=== PATIENT | female | born 1965 | race Caucasian/White ===

== ENCOUNTER 2023-04-13 07:58 | Outpatient (OUT) | payer BC, SELFPAY ==
--- NOTE | 2023-04-13 08:07 | MM_ITS ---
Patient Name: ILENE HUTCHISON MR#: [id number] : 1965 Exam Date: 04/13/2023 Ordering Doctor: DR ARMANDO WATERS M.D. RADIOLOGY REPORT PROCEDURE: MM TOMOSYNTHESIS SCREENING BI COMPARISON: MAMMO LT DX, 12/30/2011. MAMMO CLARA DX, 12/22/2011. MAMMO CLARA SCREEN, 12/19/2010. INDICATIONS: Screening Calculator Name NCI Breast Cancer Risk Assessment Tool 5 Year Breast Cancer Risk 0.90% Lifetime Breast Cancer Risk 5.90% Personal Breast Cancer No Personal Ovarian Cancer No Treatments None Family Cancers None LOCATION: [facility] BREAST COMPOSITION: Almost entirely fatty. FINDINGS: DIAGNOSTIC CATEGORY 2--BENIGN FINDING: RIGHT BREAST: No significant suspicious finding. Scattered benign-appearing calcifications are present. LEFT BREAST: No significant suspicious finding. Scattered benign-appearing calcifications are present. RECOMMENDATIONS: ROUTINE MAMMOGRAM AND CLINICAL EVALUATION IN 12 MONTHS. PLEASE NOTE: A NORMAL MAMMOGRAM DOES NOT EXCLUDE THE POSSIBILITY OF BREAST CANCER. A CLINICALLY SUSPICIOUS PALPABLE LUMP SHOULD BE BIOPSIED. Dictated by: Alec Patrick M.D. on 04/15/2023 at 15:31 Approved by: Alec Patrick M.D. on 04/15/2023 at 15:35
== END 2023-04-13 07:59 | disposition home or self-care (01) ==
LOC: MAMMO 07:58
PROVIDERS: PCP Internal Medicine; Visit Provider Internal Medicine
DX: Z12.31 Encounter for screening mammogram for malignant neoplasm of breast (principal)
CPT/HCPCS: 77063; 77067

== ENCOUNTER 2023-06-17 13:45 | Outpatient (OUT) | payer BC, SELFPAY ==
--- OUTSIDE RECORDS SUMMARY | 2023-06-17 13:53 | XMS_ITS | CCD ---
Author Organization [facility] Care Team Providers Care College Tutor Name Role Phone ASAD, DR LARKIN Admitting Unavailable ASAD, DR LARKIN Attending Unavailable WILLOW [place]OVE, DR HUDSON Primary Care Unavailable WEST, DR PIERRE Malcolm Consulting Unavailable ASAD, DR LARKIN Consulting Unavailable Ruben Llanes Attending Unavailable Ruben Llanes Admitting Unavailable Provider, None Primary Care Unavailable Myra Borges Unavailable Unallocated, [place] Provider Primary Care Provider ROMARIO COELHO Attending Unavailable ROMARIO COELHO Attending Unavailable HAILE MEDINA Attending Unavailable HAILE MEDINA Referring Unavailable HAILE MEDINA Attending Unavailable HAILE MEDINA Referring Unavailable Romario Coelho MD Primary Care Provider BRANDO MEDLEY Attending Unavailable ROMARIO COELHO Referring Unavailable ROMARIO COELHO Primary Care Unavailable Allergies Allergy Classification Reported Allergen(s) Allergy Type Date of Onset Reaction(s) Facility Contrast Media (1 source) Contrast media Substance Allergy [address] [facility] Repository Opioid Agonists (1 source) Codeine Drug Allergy [address] [facility] Repository (7 sources) Codeine; Translations: [codeine] Drug Allergy [address] [facility] Repository (8 sources) Contrast media; Translations: [Red Dye] Propensity to adverse reactions to food (disorder) [address] [facility] Repository (1 source) Codeine Drug Allergy stomach upset [facility] Other Medications Current Medications Medication Drug Class(es) Dates Sig (Normalized) Sig (Original) 8 hr acetaminophen 650 mg extended release oral tablet (4 sources) take 1 tablet by mouth every eight hours as needed for pain acetaminophen (Tylenol 8 Hour) 650 MG ER tablet Take 650 mg by mouth every 8 (eight) hours if needed for mild pain. Do not crush, chew, or split. 0 Active aspirin 325 mg oral tablet (2 sources) Platelet Aggregation Inhibitor, Nonsteroidal Anti-inflammatory Drug take 1 tablet by mouth in the morning aspirin 325 MG tablet Take 325 mg by mouth in the morning. 0 Active Calcium (1 source) Phosphate Binder, Calcium Calcium Active methylPREDNISolone 4 mg oral tablet (2 sources) Corticosteroid Start: methylPREDNISolone 4 MG as directed Orally for daily dose take half with breakfast, half with dinner for 6 days Nov, Active methylPREDNISolo ne Not-Taking Multivitamin preparation (1 source) Multivitamin Act estephania sod sulf-pot chloride-mag sulf 1.479-0.188- 0.225 gram tablet (1 source) Start: 05-26-2023 sod sulf-pot chloride-mag sulf 1.479-0.188- 0.225 gram tablet Indications: Encounter for screening colonoscopy Please see instructional sheet given by physicians office. 24 tablet 0 05/26/2023 Active vitamin B12 (1 source) Vitamin B12 Vitamin B 12 Act estephania Vitamin E (1 source) Vitamin E Active Completed/Discontinued Medications Medication Drug Class(es) Dates Sig (Normalized) Sig (Original) amoxicillin 875 mg oral tablet (1 source) Penicillin-class Antibacterial Start: 11-27-2017 take 1 tablet by mouth every twelve hours Amoxicillin 875 MG 1 tablet Orally every 12 hrs for 7 days Nov, Not-Taking azithromycin 250 mg oral tablet (1 source) Macrolide Antimicrobial Start: 11-24-2014 Zithromax Z-Geoff 250 MG 2 tablets on the first day, then 1 tablet daily for 4 days Orally Once a day for 5 day(s) Nov, Not-Taking cyclobenzaprine hydrochloride 10 mg oral tablet (1 source) Muscle Relaxant End: 05-26-2023 take 1 tablet by mouth three times daily as needed for muscle spasms cyclobenzaprine (FLEXERIL) 10 mg tablet Take 10 mg by mouth 3 (three) times a day as needed for muscle spasms. Has not started taking at this time. 0 05/26/2023 Discontinued (Therapy completed) levoFLOXacin (1 source) Quinolone Antimicrobial levoFLOXacin Not-Taking lidocaine hydrochloride 20 mg/ml mucous membrane topical solution (1 source) Antiarrhythmic, Amide Local Anesthetic Start: 11-27-2017 take 10 mL by mouth every three hours Lidocaine Viscous 2 % 10 ml swish in mouth, gargle, and spit. DO NOT swallow every 3 hrs for 2 days Nov, Not-Taking naproxen 500 mg oral tablet (1 source) Nonsteroidal Anti-inflammatory Drug End: 05-26-2023 take 1 tablet by mouth twice daily at mealtime naproxen (NAPROSYN) 500 mg tablet Take 500 mg by mouth 2 (two) times a day with meals. Has not started taking at this time. 0 05/26/2023 Discontinued (Therapy completed) predniSONE 10 mg oral tablet (1 source) Start: 11-24-2014 take 1 tablet by mouth every twelve hours predniSONE 10 mg 1 tablet with food or milk Orally Twice a day for 5 day(s) Nov, Not-Taking Problems Problem Classification Problem Date Documented Da te Episodic/Chronic Acute bronchitis (1 source) Acute bronchitis; Translations: [Acute bronchitis, unspecified] Episodic Disorders of lipid metabolism (2 sources) Mixed hyperlipidemia; Translations: [Mixed hyperlipidemia] 04-06-2023 Chronic E Codes: Struck by; against (1 source) Other cause of strike by thrown, projected or falling object, initial encounter; Translations: [OTH CAUSE STRIK THRWN/FALL OBJ INIT] Onset: 08-06-2020 Episodic Nonspecific chest pain (7 sources) Chest discomfort; Translations: [Other chest pain] Onset: 03-26-2023 03-26-2023 Episodic Other circulatory disease (7 sources) Elevated blood-pressure reading without diagnosis of hypertension; Translations: [Elevated blood-pressure reading, without diagnosis of hypertension] Onset: 03-26-2023 03-26-2023 Episodic Other injuries and conditions due to external causes (3 sources) Unspecified injury of right foot, initial encounter; Translations: [UNSPECIFIED INJURY RT FOOT INITIAL] Onset: 08-02-2020 Episodic Other nervous system disorders (4 sources) Difficulty walking; Translations: [Difficulty in walking, not elsewhere classified] Onset: 03-24-2023 03-24-2023 Chronic Other screening for suspected conditions (not mental disorders or infectious disease) (8 sources) Patient encounter status; Translations: [Encounter for other screening for malignant neoplasm of breast] Onset: 04-06-2023 04-06-2023 Episodic Other upper respiratory infections (1 source) Acute sinusitis, unspecified Episodic Residual codes; unclassified (1 source) Family history of cancer of colon; Translations: [Family history of malignant neoplasm of digestive organs] 05-26-2023 Episodic Residual codes; unclassified (1 source) Family history of malignant neoplasm of digestive organs; Translations: [Family history of malignant neoplasm of digestive organs] Onset: 05-26-2023 Episodic Screening and history of mental health and substance abuse codes (5 sources) Tobacco smoking behavior - finding; Translations: [Personal history of nicotine dependence] Onset: 03-26-2023 03-26-2023 Episodic Substance-related disorders (1 source) Nicotine dependence, cigarettes, uncomplicated; Translations: [NICOTINE DEPEND CIGARETTES UNCOMP] Onset: 08-06-2020 Chronic Superficial injury; contusion (1 source) Contusion of right foot, initial encounter; Translations: [CONTUSION RIGHT FOOT INITIAL ENC] Onset: 08-06-2020 Episodic Unclassified (1 source) Colon Cancer Screening Onset: 05-26-2023 Viral infection (1 source) Other viral agents as the cause of diseases classified elsewhere Episodic Results Test Name Value Interpretation Reference Range Facil ity Coding Summaryon 11-04-2022 Coding Summary HTMLBase 64 EuhruimgEIz7pGv+PGhlY WQ+PU0VTJJfA28gzTIblG 1aC9PIZNvAByxcPZEUGLl UDbKxnuDjMU2gjPSiZZQe IC8+OK3fLLCjOudhvYLra 5L5yIL5X04kvl6oZJhprN A7PRXvSmAgeelur8rfjZq 6IDcuNmluOyBt DFHrgY22FTA6iC10Ml01q CYoxUPuv7jirXp1SqLyUJ HaCGJ1tVwcJBcxg4LhKVR eS47pzRWsx1J1 PJRyuZqooPWyXqDksMC1v Y8iWRfskqird1ojrpllRn d1ee81gYIyd0F5aQQ6B6X suiF6OFFsrRCx QmkwzSJMaP1vkrlnn4zcx nvwXgBuYFVuWRf7TGc0BI JjzNsiTeVtTC14WYB8QHU pqcNqL6LmPMZu gRhiVnY4o2G4Xp3ST6TGT xjbF0SABTFJILinnBA+PC 24jt86I9FfElraJxw8HYX hFPW5sCV9sB1s UDYdMPsiy9O0vVJ6U6Xun zDgqb9wi8lmKJNyLJtmU3 7reTAis7X8QBPftLH2KCE iqLrkPpQfiO08 Oyc+HWHudWxbc6XdQolma 0gib7zepAq4CxctVZYlyn YsiUojKXC5f8TeAq9cFCT jlVB6vHS0hH3b VgVkBuI4XXfmJ413ThTdg ASnQzwyI22uH0KfiHJ+PH KmWzk8MOQkuSrgEV1rJ2A hZGRpbmctbGVm qSxiUE9vMXAmgdlzQRQet H3jFMOrQ8v8EsOrImD9TH jrA0HqXTUlbcqrGp46uS5 gGxDqBkT3FXhw B1ShlvE7FFRreRNcNHlvM BY8F07pw5Z3RFIqLSKwFA J0dAM0tW6izZqebgbbuWZ mdDsgdmVydGlj MZcgPEwuF378KYLknZbzK kNvZGluZyBEYXRlOiAgMD kvMTIvMjAyMzwvdGQ+PHR oMQT0lFtbIMVq xNRtLAauZj1qiRlzrUwrK W6xVIQspezyHKSexM4jDY IueZMkaPbwYE5yRKKqdnw dh618SqBkBBL3 YINxfTEvR9UyaW5lFsHlM VNcEWGbB9EldXMiYUgjD9 45BAmsFpX6OQJoxmPdZ6V sLWFsaWduOiB0 a0A9Pl9Zo9OjxazxK3Hic XNsXcDdEcjrLKp4X2SqJp wvdHI+OY89QUAaJL65ESy 3GQM9eCbhFVak BDPgC8EuqJ1fGhHnFRFqQ GRkOyc+PHRhYmxlIHdpZH RoPScxMDAlJyBzdHlsZT0 hOx0mNJQvEPOg tBsjfIIeRcWkp1nbFICkI ZljGG1ilYreX3PstQZ5ZE Pru5u8Qx80R02tW8FnhFG +TGMsyYS7vZC8 nN9pEfFwAjO0VJrkG705S dPfxOZrZptwk8xxm1ngxN n0NzH2YVEvefHirNgdTEO 6f2WsBc24E17q IHdpZHRoPSIxNSUiIHZhb Lczem2skT2oXe9+PGNvbC X7xHV2lG4fTeMjFbC7UVm gY275PmGnnGJx Ltlsj1kyx3tigFy7CvDeE MSqanVytJmmMOG9z4LdPd 98K3ZqtRctg6DrDwh3oq7 6yDWtz8L7vRB7 W5NsBXIhjldlhAFnmZvmO E0lWBDpexazSXEjkS3wHH IgZ6j8CvFhHwO9BXgzR3P ubaP4VCByiMWu FMYejNPXmY3ghaloy5qhb xhdEaMoPAShGEx8MGq2UR AzkDkwOwJkPZF7PjD4DXW 1kQFguR9ucFrw kdretC9sSms+BCF1vCHvp HHLEV3kEewbhVU+PHRkIH Z1mCmeDNptSDVsjC8qNNR kO7r3ByCvPhW9 WOegY8SahbM5QQKvgKGwG EIggEAPxI6aebgat6elzq slKhAiJOPmSEl2QUx9GPY saWduOiBsZWZ0 RkC7CFX2wLPthS3nfGjwk aptqH6fDaj+QmlydGggRG X6RXe6C4PsYri1IUPvzCy oVY5psDHhKDsi Ui8dhMlyiZclYI9xWKSbn bhnn819MyQbp3wzZCTkeR EaMKvwKNF8N20jz4S3JTM lVZUbENR1jNF2 zE2lcIkemecnrYQfhLzyi fQhcKpcZSnpPNtuS078BT FtqBplQeVoCAp7A2KlYrf 8FZGpmGfjBP5l pUCjTDxxFq6uaFwmtCbrV T9xFKBrnhesa074PkXot3 izJLYwoHJqEPwzHZY9A00 ku0E7VRDeLJAh OUF9qNU2fT0fxDlivenor GVmdDsgdmVydGljYWwtYW kkR568NTOfnCbtGsQlnQu 0F8CoFzf6EPWx iUtmUC0tsEKnPHjkMa0nj UtetSaoTW7mGBLcmqdjx6 79IvTik3zwCBLhqRDmHAb bTRD9S62mr2P1 SAOfNLKdXCB3vSW4cX0mc GlnbjogbGVmdDsgdmVydG inCRoeAVlmQ647IACanJf nPlBhdGllbnQg PRmaOMm8U5AbGluhbIS+P W59GDOqLX69vWGsxMTzm0 oswOt5XuCkPTNmRUX8dXq kPHfoe8ZzYHWj T90jvXEgz6M6IGErvCvmf QGqRwQiuZZ5qU7hNTbjye amv9guyxtqSgfzs4sxmn1 6bO17A14cHYhu ZHRoPSIzMCUiIHZhbGlnb l1iqI4oHg9+GVXvjTJ8vX M7kK4kHLPwTvP2OMscA87 9InRvcCIvPjxj g1jyh4gftMq3CfO7IZPlm fUmbJioWYP5b7HcCj34O0 9sIHdpZHRoPSIyMCUiIHZ ucTuzjk3icP4m Ii8+GDXvgLG3sGL4mZ2mE kUgKcG1OCpkO759DjRzvU TtAnriG13sB0BkwQY+PHR oCrc5UPVndJop FE6kaCNeCKnqAz4vPEL3Z gWwFmFiHPmqN7SaGKKphf effcopqHV0KYWlEVSsmW1 0Go5wwAgaMZLq wODOyD4vrtrla2tpwjpzN cQiAAUvCGf3ICs2CSInjI lrJsSgCKN5QuK0KKL1qQD vaJ1waCsddgac yF8hJ3BjTEMekaxjOr91x U8yYfYcStG4JFhcOhp+Q1 VFVkFTLCBKQUNRVUVMSU5 GCFN1W6ZtBns3 TDCabUqxID9ptJYdKFloR p7aaNbnbUkyIR8kSUAfbb vzVVHpdS8tTDPspABrmQf oFY7vYJRqacqj x568VsGsURG2XUPovVOzK 0WhjO5qGvCjPUNqOFZyD7 IejRXkOQomB083NDmiJdT 5MRZqyjNbI0Aw DSSfiSfeGkY8l7G3Yj9sV o2cWh0tKWV9VP38FF61zH Vfj4K0qWJ0J9TuVUNpgbw zpnmayUW5XVXz GDUeqE75vTZvOCjbJa7ui 5J0p328DCTwNGMdvA77Eo 5qgQuuEFOecRREcD7fzzh wo5cpuuwuDpOq XBGuZHs9CCm0VERnhGojB zMxHSX7AgX9OCE5vAJfeR 1nbBskmkhblZ2hUsq+NTU nJHGkrpK9B2Oi Moi1FDQneJstUP0wsNXtQ TygOr1zkTyikRrzTJ4bQT OuhkmvIUBvyS5yKKRkdPP qbFojTE8sHYDc oyhuw418LvMeXDN4AXMgj KFmI8BwtR0zAuCjUUKjML XoD3FsaGViTUkgN152WIg eOkD8DIHiciVj U3AnFSGfmJssSnO7u1V1Y d8FAJ6KSQI6S4SdOuc8JH EsyHitVC4utEUxKKovFl1 nuQzxaGlpSN1e QPQlmmncGNQtuE4vLSYjf MBduUayQT9jMSYfftwod2 30QsYhTSN5JUObfTQtD4H kaH9aSbZqMFAc DHZgT9EaxHGaVOymI686O VrrEgS7XANtetEmU5CkJG GozSjlBvJ5y4U0Rf6LyWN eC9UfS8h3M4Ru PjwvdHI+SW46CRYmAE28x ZFjsXPyv6dmxRm4LuDyFD CpKJF8kOgdQJrkl7NgQRZ zG59esDXnu8D8 WCRpdGafsKRzRbNynTC9s U6qKAplalono4wyjjhcFf fds1uxyh55qT91R38fZQw pZHRoPSIzMCUi TFLbjXhjlg5imW2iWe9+P GGbiIU8hPK3uE2kXgKvKd N2CKthM961RcYioJVdHop nf1sle3aheLe9 EfUuTWOpzyVlhOwvZCM5k 8DbYe38M47tCNctIDBeVW UaOGWeUMIpkRmtfw7clR3 wIi8+TH9gp0tf gq83tT67xPE+QJWwTEB8a MiuINboGLKbqR9wJOtbVm T3HJIcOpKodL52kLAlXUm yCr5bzQvuuFct WY1nZGPprhljx828SrEmm 6daGFNpfHAxXQrrQPY8P1 3ew4C4HCWaPDPdOXC5hGI 3zN3voVvwnjot bGVmdDsgdmVydGljYWwtY RbnY029DOWymQlxVzFuoR CiL0tskxLLMQ8tQgencKP +JDPbCMX5aMqt WZzkGYDmfE3aQOOtJ6v6J zLqZdB5WKlhV2YnsiP9EG WapYUcHGGviXHQjZ2odfk wc4zjgcucScEp FTUmVAs3MZd8YWTmcBjqW hPbJMF1VzB8HNV8kBAgzQ 5ilVyvceawlD1pEgh+Rkl OOjwvdGQ+PHRk FPU3hFgqBAooZTYrkU1kW MOkY3i5AsIpSbT3YFhcE9 AcpmM9TGSpuJIfCNQwnZK BfQ6vghgwj8yq lkirDyHxHWKzIRh4UHc5Z TAplJmpSxAuDNM6CfG2EL M5rHRopN4bbMziobvpmA6 wOyc+TVJOOjwv dGQ+XHAiVKH0kRjtDAneF SRdbB1jUYNjK6b6BvVfIx I4VYmoU1AivdL1BJFtoEL yHMWozRJAvD3f bxxtq7loshicZhLwOLOeA Yi6KUf7MJMggXhbXgXeME H0XaI8DGK7cDGjuZ6faTe sxamcbU4fTfs+ OGY0ADE5CI25MO02W1LtP jwvdGFibGU+PHRhYmxlIH dpZHRoPScxMDAlJyBzdHl sTQ3iIq7vZDDh LWN (more content not included)... Normal [facility] ED Clinical Summaryon [address] [facility] - Emergency Department [address] [place] [id number] ED Clinical Summary PERSON INFORMATION Name: CATRACHITA HUTCHISON Age: 57 Years Sex: FEMALE : 1965 MRN: Acct#: Visit Reason: Buttock Injury; Fall; Ankle injury - Minor; FALL-LFT ANKLE/RT BUTTOCKS PAIN Arrival: 10/24/2022 11:00:52 Discharge: 10/24/2022 13:34:00 LOS: 000 02:34 Check In: 10/24/2022 11:00:52 Checkout:10/24/2022 13:34:00 Address: [address] [place] [address] [address] [facility] [address] PCP: Provider, Unlisted PROVIDER INFORMATION Provider Role Assigned Unassigned Ruben Llanes MD ED Provider 10/24/2022 11:15:02 Joan Terry RN ED Nurse 10/24/2022 11:17:05 VITALS INFORMATION Vital Sign Triage Latest Temperature Tympanic 36.6 DegC 36.6 DegC Temperature Temporal Artery Pulse Rate O2 Sat 100 % 100 % Respiratory Rate 18 br/min 18 br/min Blood Pressure /81 mmHg /81 mmHg MEDICAL INFORMATION Medications Given: Medication Dose Route acetaminophen-hydroco done (acetaminophen-hydroc odone 325 mg-5 mg oral tablet) 1 tab(s) PO Allergy Information: Red Dye; codeine PHYSICIAN DOCUMENTATION Patient: CATRACHITA HUTCHISON Age: 57 years Sex: FEMALE : 1965 Associated Diagnoses: Moderate left ankle sprain; Fall on same level from slipping, tripping or stumbling; Contusion, buttock; Closed nondisplaced fracture of fifth metatarsal bone Author: Ruben Llanes MD Basic Information Time seen: Date & time 10/24/2022 11:20:00. History source: Patient. Arrival mode: Private vehicle, walking. History of Present Illness The patient presents following fall. The onset was just prior to arrival. The occurrence was single episode. The fall was described as tripped, fell from ground level. The location where the incident occurred was at home. The character of symptoms is pain and swelling. The exacerbating factor is movement. The relieving factor is immobilization. 57-year-old female presented to ER for evaluation of injury as result of a fall. Patient stated that injury occurred just about half an hour prior to arrival. Stated that she was at home, walking outside, tripped over and fell. Reported having her left foot and ankle gave out, and had an inversion injury. Fell also onto her right gluteal region, lower sacral region. Reported having pain both area. Reported have significant swelling to the left foot and ankle region. Reported pain with weightbearing. Pain with movement. Also pain at the right gluteal area. No other treatment prior to arrival. She reported that she has a previous left ankle problem when she was in grade school. Had some sort of ligament or sprain and reported that she had some persistent problems to that area since childhood. Review of Systems Constitutional symptoms: Negative except as documented in HPI. Skin symptoms: Negative except as documented in HPI. Musculoskeletal symptoms: Muscle pain, Joint pain. Neurologic symptoms: Negative except as documented in HPI. Health Status Allergies: Allergic Reactions (Selected) Moderate Codeine- Abdominal pain. Red Dye- No reactions were documented.. Past Medical/ Family/ Social History Medical history: No active or resolved past medical history items have been selected or recorded., Reviewed as documented in chart. Surgical history: No active procedure history items have been selected or recorded., Reviewed as documented in chart. Family history: No family history items have been selected or recorded., Reviewed as documented in chart. Social history: Social & Psychosocial Habits No Data Available , Reviewed as documented in chart. Problem list: No qualifying data available , per nurse's notes. Physical Examination Vital Signs Vital Signs 10/24/2022 11:18 EDT Temperature Tympanic 36.6 DegC Heart Rate Monitored 73 bpm Respiratory Rate 18 br/min Systolic Blood Pressure 119 mmHg Diastolic Blood Pressure 81 mmHg SpO2 100 % Oxygen Therapy Room air . General: Alert. [place] coma scale: Total score: Total score: 15. Neurological: Alert and oriented to person, place, time, and situation. Skin: Warm, dry, intact, Lateral ankle abrasion. Head: Normocephalic, atraumatic. Eye: Extraocular movements are intact, normal conjunctiva. Cardiovascular: Normal peripheral perfusion, No edema. Respiratory: Respirations are non-labored. Gastrointestinal: Soft, Nontender. Back: Normal range of motion. Musculoskeletal: Left ankle, lateral malleolus, moderate swelling noted. Overlying abrasion. Tender on palpation. Ankle appears stable with anterior posterior traction. Fifth metatarsal pain on palpation at the proximal base. Possible fracture. The rest of the foot was unremarkable. Calf is normal. Medial malleoli region normal. Right hip, no deformity. No pain at the hip region. Flexion extension and straight leg raise normal. Hip flexion 90 degrees with internal/external rotation grossly normal. With the patien (more content not included)... Normal [facility] ED Note - Physicianon 2022 ED Note - Physician Patient: CATRACHITA HUTCHISON Age: 57 years Sex: FEMALE : 1965 Associated Diagnoses: Moderate left ankle sprain; Fall on same level from slipping, tripping or stumbling; Contusion, buttock; Closed nondisplaced fracture of fifth metatarsal bone Author: Ruben Llanes MD Basic Information Time seen: Date & time 10/24/2022 11:20:00. History source: Patient. Arrival mode: Private vehicle, walking. History of Present Illness The patient presents following fall. The onset was just prior to arrival. The occurrence was single episode. The fall was described as tripped, fell from ground level. The location where the incident occurred was at home. The character of symptoms is pain and swelling. The exacerbating factor is movement. The relieving factor is immobilization. 57-year-old female presented to ER for evaluation of injury as result of a fall. Patient stated that injury occurred just about half an hour prior to arrival. Stated that she was at home, walking outside, tripped over and fell. Reported having her left foot and ankle gave out, and had an inversion injury. Fell also onto her right gluteal region, lower sacral region. Reported having pain both area. Reported have significant swelling to the left foot and ankle region. Reported pain with weightbearing. Pain with movement. Also pain at the right gluteal area. No other treatment prior to arrival. She reported that she has a previous left ankle problem when she was in grade school. Had some sort of ligament or sprain and reported that she had some persistent problems to that area since childhood. Review of Systems Constitutional symptoms: Negative except as documented in HPI. Skin symptoms: Negative except as documented in HPI. Musculoskeletal symptoms: Muscle pain, Joint pain. Neurologic symptoms: Negative except as documented in HPI. Health Status Allergies: Allergic Reactions (Selected) Moderate Codeine- Abdominal pain. Red Dye- No reactions were documented.. Past Medical/ Family/ Social History Medical history: No active or resolved past medical history items have been selected or recorded., Reviewed as documented in chart. Surgical history: No active procedure history items have been selected or recorded., Reviewed as documented in chart. Family history: No family history items have been selected or recorded., Reviewed as documented in chart. Social history: Social & Psychosocial Habits No Data Available , Reviewed as documented in chart. Problem list: No qualifying data available , per nurse's notes. Physical Examination Vital Signs Vital Signs 10/24/2022 11:18 EDT Temperature Tympanic 36.6 DegC Heart Rate Monitored 73 bpm Respiratory Rate 18 br/min Systolic Blood Pressure 119 mmHg Diastolic Blood Pressure 81 mmHg SpO2 100 % Oxygen Therapy Room air . General: Alert. [place] coma scale: Total score: Total score: 15. Neurological: Alert and oriented to person, place, time, and situation. Skin: Warm, dry, intact, Lateral ankle abrasion. Head: Normocephalic, atraumatic. Eye: Extraocular movements are intact, normal conjunctiva. Cardiovascular: Normal peripheral perfusion, No edema. Respiratory: Respirations are non-labored. Gastrointestinal: Soft, Nontender. Back: Normal range of motion. Musculoskeletal: Left ankle, lateral malleolus, moderate swelling noted. Overlying abrasion. Tender on palpation. Ankle appears stable with anterior posterior traction. Fifth metatarsal pain on palpation at the proximal base. Possible fracture. The rest of the foot was unremarkable. Calf is normal. Medial malleoli region normal. Right hip, no deformity. No pain at the hip region. Flexion extension and straight leg raise normal. Hip flexion 90 degrees with internal/external rotation grossly normal. With the patient laying on her side, palpation of the distal sacrum area, tenderness on palpation. Coccyx unremarkable. Lateral hips and pelvis stable, nontender. Medical Decision Making Differential Diagnosis: Fall, abrasion, contusion, sprain, strain, closed fracture. Documents reviewed: Prior records. Orders Launch Orders Radiology: XR Sacrum/Coccyx Minimum 2 Views (Order): 10/24/2022 11:29 EDT Stat, fall. injury, Allow Modification Per Radiologist, Transport Mode: Wheelchair XR Ankle Complete Left (Order): 10/24/2022 11:29 EDT Stat, pain, Allow Modification Per Radiologist, Transport Mode: Wheelchair, Launch Orders Radiology: XR Foot Complete Left (Order): 10/24/2022 11:32 EDT Stat, pain. attn 5th metatarsal, Allow Modification Per Radiologist, Transport Mode: Wheelchair. Reexamination/ Reevaluation Relevant differential diagnosis: Fall. Right gluteal contusion. Right pelvis fracture. Sacral fracture. Left ankle sprain. Left ankle fracture. Left foot fracture. Left foot Number and complexity of problems: 57-year-old female presented to ER for evaluation injury as result of a fall. Stated the injury occurred at h (more content not included)... [facility] ED Note-Nursingon 10-24-2022 ED Note-Nursing Patient arrives to the ED via private vehicle. Wheeled to ED room 6. Alert and oriented X4. C/O left ankle pain and swelling and right buttocks pain. Patient reports tripping and falling. Patient reports previous history of left ankle injuries. Normal [facility] ED Patient Summaryon [address] [facility] - Emergency Department [address] [place] [address] PATIENT DISCHARGE INSTRUCTIONS Patient Information Name: CATRACHITA HUTCHISON Age: 57 Years Date of : 1965 Reason For Visit: Buttock Injury; Fall; Ankle injury - Minor; FALL-LFT ANKLE/RT BUTTOCKS PAIN Arrival Time: 10/24/2022 11:00:52 Primary Care Physician: Provider, Unlisted Attending Physician: Ruben Llanes MD Comment: Visit Diagnosis: Diagnoses This Visit Ankle injury - Minor ([id number]) Buttock Injury ([id number]) Closed nondisplaced fracture of fifth metatarsal bone (S92.356A) Contusion, buttock (S30.0XXA) Fall ([id number]) Fall on same level from slipping, tripping or stumbling (W01.0XXA) Moderate left ankle sprain (S93.402A) The Pharmacy at [facility] is open Thursday through Thursday from 9A to 6P and Thursday and Thursday from 9A to 5P Prescription Information: If you have been given a prescription for narcotics, seek immediate medical attention if you have any difficulty breathing or any sudden status changes such as confusion and sleepiness. If you or anyone you know is experiencing suicidal thoughts, mental health, alcohol and/or drug addiction problems; contact the [facility] 15/09 Crisis Hotline -Text 4HLTC rr [id number]. If you received any narcotics, sedation, or any other medication that causes drowsiness for the next 24 hours, unless otherwise directed: ? Do not drive a car. ? Do not operate machinery such as power tools, lawn mowers, drills, sewing machines, or stoves ? Avoid alcoholic beverages and drugs for allergies, nerves, or sleep ? Do not make important personal or business decisions or sign any legal documents With: Address: When: Unlisted Provider Within 2 to 4 days Comments: Reviewed discharge care instruction. Continue with therapy as outlined by Dr. Llanes. Elevate your foot and ankle when possible. May apply cold compress 20 minutes every 2-3 hours as needed for pain and swelling. May take 2 tablet extra strength Tylenol 3 times a day as needed for pain. Keep splint clean and dry. Use crutches for support. Nonweightbearing until reevaluated. Contact import export agent or orthopedics of your choice in your hometown. Return to ER for any worsening symptoms especially any symptom that concerns you. Medication Information: The exam and treatment you received today in the [facility] Emergency Department were for an urgent problem and are not intended as complete care. It is important for you to follow up with a doctor, nurse practitioner, or physician?s guest services assistant for ongoing care. If your symptoms become worse or you do not improve as expected and you are unable to reach your usual health care provider, you should return to the Emergency Department, we are available 24 hours a day. For those patients who have received Radiology results, the interpretation of your X-ray as given to you by our Emergency Department physician is only a preliminary report. The Radiologist will review your films and if there is a change in the diagnosis you will be notified by phone. Please make sure you have provided a working phone number so we can reach you if necessary. In the event that you had a lab culture while you were a patient in the Emergency Department, you will be notified by phone if there is a need to change your antibiotic. Please make sure you have provided a working phone number so we can reach you if necessary. [facility] Emergency Department has provided you with a complete list of medications post discharge. Please inform your automatic lump making machine tender/provider of your visit and for further instruction on these medications. Any specific questions regarding your chronic medications and dosages should be discussed with your primary care physician(s) and/or pharmacist. New Medications [facility], [address] [place], [place] [id number], [phone] acetaminophen-hydroco done (acetaminophen-hydroc odone 325 mg-5 mg oral tablet) 1 tab(s) Oral 3 times a day as needed as needed for pain for 3 Days. Refills: 0. Visit Information Allergies: Substance Reaction Symptoms Type Comments codeine Abdominal pain Drug Red Dye Food Vital Signs: Vitals and Measurements this Visit (last charted value for your 10/24/2022 visit) Vital Signs This Visit Temperature Tympanic: 36.6 DegC Heart Rate Monitored: 73 bpm Respiratory Rate: 18 br/min Systolic Blood Pressure: 119 mmHg Diastolic Blood Pressure: 81 mmHg SpO2: 100 % Oxygen Therapy: Room air Measurements This Visit Height/Length Measured: 165.000 cm Height/Length Dosin.000 cm Weight Measured: 86.000 kg Weight Dosin.000 kg Body Mass Index: 31.590 kg/m2 Problems List: Problem Onset Comments No Problems found Patient Education (more content not included)... Normal [facility] XR Ankle Complete Lefton XR Ankle Complete Left CLINICAL HISTORY: Pain after falling. COMPARISON: None available. TECHNIQUE: AP, lateral, and oblique radiographs of the left foot, and AP, mediolateral, medial and external oblique radiographs of the left ankle were obtained. FINDINGS: Soft tissue swelling is noted, predominantly of the lateral ankle. A nondisplaced fracture through the base of the left fifth metatarsal is present, consistent with a Duffy fracture. There is no other fracture, dislocation, worrisome bone destruction, radiodense foreign bodies, or other acute findings. The visualized joint spaces and ankle mortise are intact. A moderate-sized plantar calcaneal spur is noted. IMPRESSION: NONDISPLACED FRACTURE OF THE BASE OF THE LEFT FIFTH METATARSAL. Final Signed (Electronic Signature): Alec Johnson MD 10/24/22 12:25 p Technologist: RAFAEL CRUZ [facility] XR Foot Complete Lefton XR Foot Complete Left CLINICAL HISTORY: Pain after falling. COMPARISON: None available. TECHNIQUE: AP, lateral, and oblique radiographs of the left foot, and AP, mediolateral, medial and external oblique radiographs of the left ankle were obtained. FINDINGS: Soft tissue swelling is noted, predominantly of the lateral ankle. A nondisplaced fracture through the base of the left fifth metatarsal is present, consistent with a Duffy fracture. There is no other fracture, dislocation, worrisome bone destruction, radiodense foreign bodies, or other acute findings. The visualized joint spaces and ankle mortise are intact. A moderate-sized plantar calcaneal spur is noted. IMPRESSION: NONDISPLACED FRACTURE OF THE BASE OF THE LEFT FIFTH METATARSAL. Final Signed (Electronic Signature): Alec Johnson MD 10/24/22 12:25 p Technologist: ANTHONY [facility] XR Sacrum/Coccyx Minimum 2 V ws 10-24-2022 XR Sacrum/Coccyx Minimum 2 Views CLINICAL HISTORY: Pain after falling. COMPARISON: None available. TECHNIQUE: 4 views of the sacrum and coccyx were obtained. FINDINGS: There is no displaced fracture, dislocation, pelvic diastases, evidence of significant hematoma, or other acute findings identified. Mild degenerative changes of the left sacroiliac joint are noted. IMPRESSION: NO DISPLACED FRACTURE OR SIGNIFICANT POSTTRAUMATIC COMPLICATION IDENTIFIED. Final Signed (Electronic Signature): Alec Johnson MD 10/24/22 12:27 p Technologist: ANTHONY [facility] Vital Signs Date Time Vital Sign Value Performing Clinician Facility 05-26-2023 10:040 Body height 165.1 cm Brando ASH Work Phone: [facility] 05-26-2023 10:27-040 Body mass index (BMI) [Ratio] 32.55 kg/m2 Brando ASH Work Phone: [facility] 05-26-2023 10:27040 Body weight 88.72 kg Brando ASH Work Phone: [facility] 05-26-2023 10:27-0400 Diastolic blood pressure 85 mm[Hg] rBando Medley [employer] TRANSITIONS NURSE Work Phone: [facility] 05-26-2023 10:27-0400 Systolic blood pressure 136 mm[Hg] Brando Medley [employer] TRANSITIONS NURSE Work Phone: [facility] 04-06-2023 10:10-0500 Body height 165.1 cm Romario Coelho MD Work Phone: [facility] 04-06-2023 10:10-0500 Body mass index (BMI) [Ratio] 32.45 kg/m2 Romario Coelho MD Work Phone: [facility] 04-06-2023 10:10-0500 Body weight 88.45 kg Romario Coelho MD Work Phone: [facility] 04-06-2023 10:10-0500 Diastolic blood pressure 84 mm[Hg] Romario Coelho MD Work Phone: [facility] 04-06-2023 10:10-0500 Heart rate 77 /min Romario Coelho MD Work Phone: [facility] 04-06-2023 10:10-0500 SaO2% (BldA) [Mass fraction] 98 % Romario Coelho MD Work Phone: [facility] 04-06-2023 10:10-0500 Systolic blood pressure 136 mm[Hg] Romario Coelho MD Work Phone: [facility] 03-26-2023 14:11-0500 Body mass index (BMI) [Ratio] 32.28 kg/m2 Romario Coelho MD Work Phone: [facility] 03-26-2023 14:11-0500 Body weight 88 kg Romario Coelho MD Work Phone: [facility] 03-26-2023 14:11-0500 Heart rate 92 /min Romario Coelho MD Work Phone: [facility] 03-26-2023 14:11-0500 SaO2% (BldA) [Mass fraction] 97 % Romario Coelho MD Work Phone: [facility] 12-04-2022 14:30-0400 Body height 165.1 cm Myra Borges Other [facility] Other 12-04-2022 14:30-0400 Body mass index (BMI) [Ratio] 30.78 kg/m2 Myra Borges Other [facility] Other 12-04-2022 14:30-0400 Body temperature 98.3 [degF] Myra Borges Other [facility] Other 12-04-2022 14:30-0400 Body weight 83.92 kg Myra Borges Other [facility] Other 12-04-2022 14:30-0400 Diastolic blood pressure 86 mm[Hg] Myra Borges Other [facility] Other 12-04-2022 14:30-0400 Respiratory rate 18 /min Myra Borges Other [facility] Other 12-04-2022 14:30-0400 SaO2% (BldA) [Mass fraction] 98 % Myra Borges Other [facility] Other 12-04-2022 14:30-0400 Systolic blood pressure 124 mm[Hg] Myra Borges Other [facility] Other Encounters Encounter Date Encounter Type Care Provider Facility Start: 05-26-2023 End: 05-26-2023 ambulatory [facility] Start: 05-26-2023 End: 05-26-2023 Patient encounter procedure Brando Medley [employer] NURSE Work Phone: [facility] Comment on above: Encounter for screen ing colonoscopy (Primary Dx); Family history of malignant neoplasm of colon in father Start: 04-06-2023 RanjitImageBriefo flowsheet Romario pascual MD Work Phone: [facility] Start: 04-06-2023 RanjitImageBriefo flowsheet Romario pascual MD Work Phone: [facility] Start: 04-06-2023 End: 04-06-2023 ambulatory ROMARIO COELHO Not Available Start: 04-06-2023 End: 04-06-2023 Office outpatient visit 15 minutes Romario Coelho MD Work Phone: [facility] Comment on above: Elevated BP without diagnosis of hypertension (Primary Dx); Moderate mixed hyperlipidemia not requiring statin therapy (CMS/HCC); Breast screening; Encounter for screening for malignant neoplasm of colon; Chest discomfort Start: 03-26-2023 End: 03-26-2023 ambulatory ROMARIO COELHO Not Available Start: 03-26-2023 End: 03-26-2023 Office outpatient visit 25 minutes Romario Coelho MD Work Phone: [facility] Comment on above: Chest discomfort (Pr imary Dx); Elevated BP without diagnosis of hypertension; History of cigarette smoking Start: 02-03-2023 End: 02-04-2023 ambulatory HAILE MEDINA Not Available Start: 01-06-2023 End: 01-07-2023 ambulatory HAILE MEDINA Not Available Start: 12-04-2022 End: 12-04-2022 ambulatory Myra Borges Other [facility] Other Start: 12-04-2022 Office outpatient ne w 30 minutes Myra Borges [facility] [place] Start: 10-24-2022 End: 10-24-2022 Emergency department patient visit Ruben Llanes Facility:[facility] Start: 08-02-2020 End: 08-02-[address] CHAYA KAMARA Facility: Plan of Treatment Date Care Activity Detail Author Start: 05-25-2024 Adult BMI Screening Adult BMI Screen ing [facility] Start: 05-25-2024 Tobacco Screening Tobacco Screening [facility] Start: 10-25-2023 Influenza vaccination Influenza Vacc ine [facility] Start: 10-05-2023 End: 10-05-2023 Patient encounter procedure 10/05/2023 8:30 AM EDT Office Visit [facility] [address] [place] [address] Romario Coelho MD [address] [place] [address] [facility] Start: 04-06-2023 End: 06-04-2024 MG Breast - bilateral Screening Bilateral screening mammogram Imaging Routine Breast screening Expected: 04/06/2023 (Approximate), Expires: 06/04/2024 [facility] Work Phone: Comment on above: Expected: 04/06/2023 (Approximate), Expires: 06/04/2024 Start: 04-06-2023 End: 04-06-2023 Patient encounter procedure 04/06/2023 10:15 AM EST Office Visit [facility] [address] [facility] [address] [place] [address] Romario Coelho MD [address] [place] [address] Arrived [facility] Comment on above: Arrived Start: 03-26-2023 End: 03-26-2024 Comprehensive metabolic 2000 panel - Serum or Plasma Comprehensive metabolic panel Lab Routine Chest discomfort Elevated BP without diagnosis of hypertension Expected: 03/26/2023 (Approximate), Expires: 03/26/2024 [facility] Comment on above: Expected: 03/26/2023 (Approximate), Expires: 03/26/2024 Start: 03-26-2023 End: 03-26-2024 Lipid 1996 panel - Serum or Plasma Lipid panel Lab Routine Chest discomfort Elevated BP without diagnosis of hypertension Expected: 03/26/2023 (Approximate), Expires: 03/26/2024 [facility] Comment on above: Expected: 03/26/2023 (Approximate), Expires: 03/26/2024 Start: 03-26-2023 End: 03-26-2024 TSH W/REFLEX TO FT4 TSH W/REFLEX TO FT4 Lab Routine Chest discomfort Elevated BP without diagnosis of hypertension Expected: 03/26/2023 (Approximate), Expires: 03/26/2024 [facility] Work Phone: Comment on above: Expected: 03/26/2023 (Approximate), Expires: 03/26/2024 Start: 10-24-2022 COVID-19 Vaccine () COVID-19 Vaccine () [facility] Start: 2017 Administration of varicella zoster vaccine Zoster (Shingles) Vaccine (1 of 2) [facility] Start: 2007 Screening for malign ant neoplasm of breast Mammogram [facility] Start: 1997 Screening for malign ant neoplasm of cervix [facility] Start: 02-14-1988 Screening for malign ant neoplasm of cervix Pap Smear [facility] Start: 1986 DTaP,Tdap and Td Vaccines (1 - Tdap) DTaP,Tdap and Td Vaccines (1 - Tdap) [facility] Start: 1985 Adult BMI Follow Up Plan Adult BMI Follow Up Plan [facility] Start: 1979 Depression Screening Depression Scre ening [facility] Start: 1967 Screening for malign ant neoplasm of colon [facility] End: 05-24-2024 Colonoscopy Colonoscopy GI Routine Encounter for screening colonoscopy 1 Occurrences starting 05/26/2023 until 05/24/2024 [facility] Work Phone: Comment on above: 1 Occurrences starti ng 05/26/2023 until 05/24/2024 Immunizations Immunization Date Immunization Notes Care Provider Yoh[facility] 01-12-2023 influenza, injectabl e, quadrivalent, preservative free Romario Coelho MD Work Phone: [facility] 01-12-2023 influenza virus vaccine, unspecified formulation Brando ASH Work Phone: [facility] Payers Date Payer Category Payer Unknown [id number] 1967 Unknown [id number] [id number] 1967 Unknown [id number] [id number] 1967 Unknown [id number] 2.16.84 [id number] 1967 Unknown [id number] 2.16.84 [id number] 1967 Unknown [id number] 1967 Unknown [id number] 1967 Unknown [id number] 1967 Unknown [id number] 1967 Unknown [id number] 2.16.8 [id number] 1959 Unknown [id number] Social History Date Type Detail Facility Unknown if ever smoked [facility] Other Start: 04-05-2020 End: 03-26-2023 Sex Assigned At [facility] Start: 10-28-2022 End: 05-26-2023 Tobacco smoking status [facility] Ex-smoker [facility] End: 03-26-2022 History of tobacco use Current smoker [facility] End: 03-26-2022 History of tobacco use Cigarette Smoker [facility] Start: 10-28-2022 End: 05-26-2023 Tobacco use and exposure Smokeless tobacco non-user [facility] Start: 04-05-2020 End: 03-26-2023 History of Social function [facility] Start: 1965 Sex Assigned [facility] Start: 10-28-2022 Gender identity Identifies as female gender (finding) [facility] Within the last year , have you been afraid of your partner or ex-partner? No [facility] How often do you attend latter day or adventist services? Patient refused [facility] Are you now , , , , never or living with a partner? [facility] How often to you hav e a drink containing alcohol? Never [facility] Do you feel stress - tense, restless, nervous, or anxious, or unable to sleep at night because your mind is troubled all the time - these days [OSQ] To some extent [facility] (I/We) worried wheth er (my/our) food would run out before (I/we) got money to buy more. Never true [facility] Start: 05-26-2023 Alcohol intake Current non-dr jewelry salesperson of alcohol (finding) [facility] Start: 1965 Sex Assigned At Not on file P [facility] Clinical Notes 08-02-2020 to 05-26-2023 Brando Medley APRN-[facility] - 05/26/2023 10:30 AM Prabha Coelho MD - 04/06/2023 10:15 AM Tanay Coelho MD - 03/26/2023 2:00 PM EST Note Date & Type Note Facility 05-26-2023 History of Present illness Narrative Chief Complaint: Colon cancer screening History of Present Illness Catrachita Hutchison is a 58 y.o. female who presents to the office for colon cancer screening. This is her first colonoscopy. She denies any changes in her bowels including diarrhea, constipation, abdominal pain, melena, hematochezia, unexplained weight loss. There is a family history of colon cancer in her father, diagnosed when he was 61 or 62 years old. Review of Systems Constitutional: Negative for fever and unexpected weight change. HENT: Negative for trouble swallowing. Respiratory: Negative for shortness of breath. Cardiovascular: Negative for chest pain. Gastrointestinal: Negative for nausea, vomiting, abdominal pain, diarrhea, constipation, blood in stool and black tarry stool. Genitourinary: Negative for dysuria and difficulty urinating. Musculoskeletal: Negative for gait problem. Skin: Negative for rash and wound. Neurological: Negative for dizziness, weakness and light-headedness. Hematological: Does not bruise/bleed easily. Psychiatric/Behavioral: Negative for confusion. Past Medical History: Diagnosis Date Diverticulosis Hip pain Bursa issue to left hip Past Surgical History: Procedure Laterality Date APPENDECTOMY CHOLECYSTECTOMY ROTATOR CUFF REPAIR Right TONSILLECTOMY TUBAL LIGATION Allergies Allergen Reactions Codeine Red Dye Current Outpatient Medications: sod sulf-pot chloride-mag sulf 1.479-0.188- 0.225 gram tablet, Please see instructional sheet given by physicians office., Disp: 24 tablet, Rfl: 0 Social History Socioeconomic History Marital status: Spouse name: Not on file Number of children: Not on file Years of education: Not on file Highest education level: Not on file Occupational History Not on file Tobacco Use Smoking status: Former Types: Cigarettes Quit date: 2021 Years since quittin.2 Smokeless tobacco: Never Vaping Use Vaping Use: Some days Substances: Nicotine Substance and Sexual Activity Alcohol use: No Drug use: Not Currently Sexual activity: Defer Other Topics Concern Not on file Social History Narrative Not on file Social Determinants of Health Financial Resource Strain: Not on file Food Insecurity: No Food Insecurity (05/26/2023) Hunger Screening Food Insecurity - Worry: Never True Food Insecurity - Inability: Never True Transportation Needs: Not on file Physical Activity: Not on file Stress: Not on file Social Connections: Not on file Interpersonal Safety: Not on file Housing Instability: Not on file Family History Problem Relation Age of Onset Colon cancer Father 62 Colon cancer Maternal Grandmother Objective Physical Exam Constitutional: General: She is not in acute distress. Appearance: Normal appearance. She is not ill-appearing. HENT: Head: Normocephalic and atraumatic. Mouth/Throat: Mouth: Mucous membranes are moist. Eyes: Pupils: Pupils are equal, round, and reactive to light. Cardiovascular: Rate and Rhythm: Normal rate. Pulmonary: Effort: Pulmonary effort is normal. No respiratory distress. Abdominal: General: There is no distension. Palpations: Abdomen is soft. Musculoskeletal: General: Normal range of motion. Skin: General: Skin is warm and dry. Neurological: Mental Status: She is alert and oriented to person, place, and time. Mental status is at baseline. Vital Signs: Blood pressure 136/85, height 165.1 cm (5' 5 ), weight 88.7 kg (195 lb 9.6 oz). Respiratory Source: No data recorded Admission Weight: Weight: 88.7 kg (195 lb 9.6 oz) Labs No results found for: WBC , HGB , HCT , MCV , PLT No results found for: GLU , CALCIUM , NA , K , CO2 , CL , BUN , CREATININE No results found for: AMYLASE No results found for: LIPASE No results found for: ALT , AST , GGT , ALKPHOS , LABBILI No results found for: INR , PROTIME Assessment Catrachita Hutchison is a 58 y.o.female who presents to the office for screening colonoscopy. There is a family history of colon cancer in her father. Plan Colonoscopy with possible biopsy and/or polypectomy. Risks, benefits, and alternatives discussed with patient. Educated on bowel evacuation preparation. Patient verbalizes understanding and wishes to proceed. Evaluation included: Preparing to see the patient (e.g., review of tests) Obtaining and/or reviewing separately obtained history Performing a medically appropriate examination and/or evaluation Counseling and educating the patient/family/caregiver Referring and communicating with other health reproductive healthcare assistant Encounter for screening colonoscopy [Z12.11] NILSA REDD [facility] General Surgery [place] This note was created with the assistance of a speech recognition program. While intending to generate a timely document that accurately reflects the content of the visit, no guarantee can be provided that every grammatical or spelling mistake has been or will be identified or corrected. Thank you for your understanding. NILSA Redd 05/26/23 1049 documented in this encounter [facility] 04-06-2023 History of Present illness Narrative Subjective Patient ID: Catrachita Hutchison is a 58 y.o. female who presents for Results (labs) and Follow-up (CP and elevated blood pressure). Pt states she has only had 1 episode of CP since last office visit Denies: dyspnea, epistaxis, syncope,edema,palpitations Current Outpatient Medications on File Prior to Visit Medication Sig Dispense Refill acetaminophen (Tylenol 8 Hour) 650 MG ER tablet Take 650 mg by mouth every 8 (eight) hours if needed for mild pain. Do not crush, chew, or split. aspirin 325 MG tablet Take 325 mg by mouth in the morning. No current facility-administered medications on file prior to visit. Allergies Allergen Reactions Codeine Unknown Other Reaction(s): Abdominal pain Red Dye Other Reaction(s): Unknown Social History Tobacco Use Smoking status: Former Types: Cigarettes Quit date: 03/2022 Years since quittin.0 Smokeless tobacco: Never Family History Problem Relation Name Age of Onset Cancer Father History reviewed. No pertinent past medical history. Past Surgical History: Procedure Laterality Date APPENDECTOMY GALLBLADDER SURGERY ROTATOR CUFF REPAIR Right Dr anderson TONSILLECTOMY TUBAL LIGATION Visit Vitals BP 136/84 Pulse 77 Ht 5' 5 Wt 195 lb SpO2 98% BMI 32.45 kg/m Smoking Status Former BSA 2.01 m Review of Systems Respiratory: Negative for apnea, cough, chest tightness, shortness of breath and wheezing. Cardiovascular: Positive for chest pain. Negative for palpitations and leg swelling. Objective Physical Exam Constitutional: General: She is not in acute distress. Appearance: Normal appearance. She is well-developed. HENT: Head: Normocephalic and atraumatic. Eyes: General: No scleral icterus. Conjunctiva/sclera: Conjunctivae normal. Cardiovascular: Rate and Rhythm: Normal rate and regular rhythm. Heart sounds: Normal heart sounds. No murmur heard. Pulmonary: Effort: Pulmonary effort is normal. No respiratory distress. Breath sounds: Normal breath sounds. No wheezing, rhonchi or rales. Skin: General: Skin is warm and dry. Neurological: General: No focal deficit present. Mental Status: She is alert and oriented to person, place, and time. Psychiatric: Mood and Affect: Mood normal. Behavior: Behavior normal. Office Visit on 03/26/2023 Component Date Value Ref Range Status TSH W/REFLEX TO FT4 03/26/2023 0.97 0.40 - 4.50 mIU/L Final Glucose 03/26/2023 84 65 - 99 mg/dL Final Comment: Fasting reference interval BUN 03/26/2023 7 7 - 25 mg/dL Final Creatinine 03/26/2023 0.61 0.50 - 1.03 mg/dL Final EGFR 03/26/2023 105 > OR = 60 mL/min/1.73m2 Final BUN/CREATININE RATIO 03/26/2023 SEE NOTE: 6 - 22 (calc) Final Comment: Not Reported: BUN and Creatinine are within reference range. Sodium 03/26/2023 140 135 - 146 mmol/L Final Potassium, Bld 03/26/2023 4.2 3.5 - 5.3 mmol/L Final Chloride 03/26/2023 103 98 - 110 mmol/L Final Carbon Dioxide 03/26/2023 28 20 - 32 mmol/L Final Calcium 03/26/2023 10.0 8.6 - 10.4 mg/dL Final PROTEIN, TOTAL 03/26/2023 7.2 6.1 - 8.1 g/dL Final ALBUMIN 03/26/2023 4.8 3.6 - 5.1 g/dL Final GLOBULIN 03/26/2023 2.4 1.9 - 3.7 g/dL (calc) Final ALBUMIN/GLOBULIN RATIO 03/26/2023 2.0 1.0 - 2.5 (calc) Final BILIRUBIN, TOTAL 03/26/2023 0.5 0.2 - 1.2 mg/dL Final ALKALINE PHOSPHATASE 03/26/2023 64 37 - 153 U/L Final AST 03/26/2023 36 (H) 10 - 35 U/L Final ALT 03/26/2023 72 (H) 6 - 29 U/L Final CHOLESTEROL, TOTAL 03/26/2023 257 (H) <200 mg/dL Final HDL CHOLESTEROL 03/26/2023 69 > OR = 50 mg/dL Final TRIGLYCERIDES 03/26/2023 163 (H) <150 mg/dL Final LDL-CHOLESTEROL 03/26/2023 158 (H) mg/dL (calc) Final Comment: Reference range: <100 Desirable range <100 mg/dL for primary prevention; <70 mg/dL for patients with CHD or diabetic patients with > or = 2 CHD risk factors. LDL-C is now calculated using the Duke-Barr calculation, which is a validated novel method providing better accuracy than the Friedewald equation in the estimation of LDL-C. Duke SS et al. SLICK. 2013;310(19): 9443-7319 (http://education.Oppten/faq/QLG478) CHOL/HDLC RATIO 03/26/2023 3.7 <5.0 (calc) Final NON HDL CHOLESTEROL 03/26/2023 188 (H) <130 mg/dL (calc) Final Comment: For patients with diabetes plus 1 major ASCVD risk factor, treating to a non-HDL-C goal of <100 mg/dL (LDL-C of <70 mg/dL) is considered a therapeutic option. Assessment/Plan Diagnoses and all orders for this visit: Elevated BP without diagnosis of hypertension - Improved today. Moderate mixed hyperlipidemia not requiring statin therapy (CMS/HCC) - Labs discussed, low cholesterol diet is recommended. Breast screening - Bilateral screening mammogram; Future Encounter for screening for malignant neoplasm of colon - Ambulatory referral to General Surgery; Future Chest discomfort - Improving. Likely a stress reaction. Follow up in about 6 months (around 10/05/2023) for Routine F/U, Test/Lab Review. documented in this encounter [facility] 03-26-2023 History of Present illness Narrative Subjective Patient ID: Catrachita Hutchison is a 58 y.o. female who presents for Establish Care (Tightness in chest ). 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 Do not crush, chew, or split. No current facility-administered medications on file prior to visit. Allergies Allergen Reactions Codeine Unknown Other Reaction(s): Abdominal pain Red Dye Other Reaction(s): Unknown Social History Tobacco Use Smoking status: Former Types: Cigarettes Quit date: 03/2022 Years since quittin.0 Smokeless tobacco: Never Family History Problem Relation Name Age of Onset Cancer Father History reviewed. No pertinent past medical history. Past Surgical History: Procedure Laterality Date APPENDECTOMY GALLBLADDER SURGERY ROTATOR CUFF REPAIR Right Dr anderson TONSILLECTOMY TUBAL LIGATION Visit Vitals Pulse 92 Wt 194 lb SpO2 97% BMI 32.28 kg/m Smoking Status Former BSA 2.01 m Review of Systems Respiratory: Negative for apnea, cough, chest tightness, shortness of breath and wheezing. Cardiovascular: Positive for chest pain. Negative for palpitations and leg swelling. Objective Physical Exam Constitutional: General: She is not in acute distress. Appearance: Normal appearance. She is well-developed. HENT: Head: Normocephalic and atraumatic. Eyes: General: No scleral icterus. Conjunctiva/sclera: Conjunctivae normal. Cardiovascular: Rate and Rhythm: Normal rate and regular rhythm. Heart sounds: Normal heart sounds. No murmur heard. Pulmonary: Effort: Pulmonary effort is normal. No respiratory distress. Breath sounds: Normal breath sounds. No wheezing, rhonchi or rales. Skin: General: Skin is warm and dry. Neurological: General: No focal deficit present. Mental Status: She is alert and oriented to person, place, and time. Psychiatric: Mood and Affect: Mood normal. Behavior: Behavior normal. Assessment/Plan Diagnoses and all orders for this visit: Chest discomfort - TSH W/REFLEX TO FT4; Future - Comprehensive metabolic panel; Future - Lipid panel; Future - Few risk factors, no family history of CAD. Her pain is not noted with exertion, just at rest. High stress level in her life currently, per patient. EKG and exam are normal. - Start ASA 325 1 po qam for now. Elevated BP without diagnosis of hypertension - TSH W/REFLEX TO FT4; Future - Comprehensive metabolic panel; Future - Lipid panel; Future - Recheck in 1 week History of cigarette smoking Follow up in about 1 week (around 04/02/2023) for Test/Lab Review, BP check. documented in this encounter [facility] 12-04-2022 Evaluation note Encounter Date Diagnosis Assessment Notes Nov, Acute sinusitis, unspecified (ICD-10 - J01.90) Patient declines/refusin g COVID/Influenza testing. Discussed diagnosis with patient today. Will treat as viral at this time based on physical exam and duration of symptoms. Advised patient viral syndromes last 7-10 days. If symptoms do not improve in the next 3-4 days patient may call UC and I will send antibiotic. Take rx of steroid as directed. Encouraged supportive care as directed today. Push fluids/rest, nasal saline washes as directed, may use Tylenol or Motrin as needed for discomfort, OTC plain Mucinex. Patient to follow up with PCP or UC for any new or worsening symptoms. Immediate eval if SOB, wheezing, difficulty breathing, or other concerning symptoms. Patient verbalizes understanding and is agreeable to treatment plan. Nov, Other viral agents as the cause of diseases classified elsewhere (ICD-10 - B97.89) [facility] Other 09-01-2023 [facility] Metatarsal Fracture A metatarsal fracture is a break in one of the five bones that connect the toes to the rest of the foot. This may also be called a forefoot fracture. A metatarsal fracture may be: ? A crack in the surface of the bone (stress fracture). This often occurs in athletes. ? A break all the way through the bone (complete fracture). The bone that connects to the little toe (fifth metatarsal) is most commonly fractured. Ballet dancers often fracture this bone. What are the causes? A metatarsal fracture may be caused by: ? Sudden twisting of the foot. ? Falling onto the foot. ? Something heavy falling onto the foot. ? Overuse or repetitive exercise. What increases the risk? This condition is more likely to develop in people who: ? Play contact sports. ? Do ballet. ? Have a condition that causes the bones to become thin and brittle (osteoporosis). ? Have a low calcium level. What are the signs or symptoms? Symptoms of this condition include: ? Pain that gets worse when walking or standing. ? Pain when pressing on the foot or moving the toes. ? Swelling. ? Bruising on the top or bottom of the foot. How is this diagnosed? This condition may be diagnosed based on: ? Your symptoms. ? Any recent foot injuries you have had. ? A physical exam. ? An X-ray of your foot. If you have a stress fracture, it may not show up on an X-ray, and you mayneed other imaging tests, such as: ? A bone scan. ? CT scan. ? MRI. How is this treated? Treatment depends on how severe your fracture is and how the pieces of the broken bone line up witheach other (alignment). Treatment may involve: ? Wearing a cast, splint, or supportive boot on your foot. ? Using crutches, and not putting any weight on your foot. ? Having surgery to align broken bones (open reduction and internal fixation, ORIF). ? Physical therapy. ? Follow-up visits and X-rays to make sure you are healing. Follow these instructions at home: If you have a splint or a supportive boot: ? Wear the splint or boot as told by your health care provider. Remove it only as told by your health care provider. ? Loosen the splint or boot if your toes tingle, become numb, or turn cold and blue. ? Keep the splint or boot clean. ? If your splint or boot is not waterproof: ? Do not let it get wet. ? Cover it with a watertight covering when you take a bath or a shower. If you have a cast: ? Do not stick anything inside the cast to scratch your skin. Doing that increases your risk for infection. ? Check the skin around the cast every day. Tell your health care provider about any concerns. ? You may put lotion on dry skin around the edges of the cast. Do not put lotion on the skin underneath the cast. ? Keep the cast clean. ? If the cast is not waterproof: ? Do not let it get wet. ? Cover it with a watertight covering when you take a bath or a shower. Activity ? Do not use your affected leg to support your body weight until your health care provider says that you can. Use crutches as directed. ? Ask your health care provider what activities are safe for you during recovery, and ask what activities you need to avoid. ? Do physical therapy exercises as directed. Driving ? Do not drive or use heavy machinery while taking pain medicine. ? Do not drive while wearing a cast, splint, or boot on a foot that you use for driving. Managing pain, stiffness, and swelling ? If directed, put ice on painful areas: ? Put ice in a plastic bag. ? Place a towel between your skin and the bag. ? If you have a removable splint or boot, remove it as told by your health care provider. ? If you have a cast, place a towel between your cast and the bag. ? Leave the ice on for 20 minutes, 2?3 times a day. ? Move your toes often to avoid stiffness and to lessen swelling. ? Raise (elevate) your lower leg above the level of your heart while you are sitting or lying down. General instructions ? Do not put pressure on any part of the cast or splint until it is fully hardened. This may take several hours. ? Take [id number] and prescription medicines only as told by your health care provider. ? Do not use any products that contain nicotine or tobacco, such as cigarettes and e-cigarettes. These can delay bone healing. If you need help quitting, ask your health care provider. ? Do not take baths, swim, or use a hot tub until your health care provider approves. Ask your health care provider if you may take showers. ? Keep all follow-up visits as told by your health care provider. This is important. Contact a health care provider if you have: ? Pain that gets worse or does not get better with medicine. ? A fever. ? A bad smell coming from your cast or splint. Get help right away if you have: ? Any of the following in your toes or your foot, ev (more content not included)...[id number] NotePROCEDURE: XR FOOT LT MIN 3 VIEWS COMPARISON: 07/27/2012 HISTORY: Injury of left foot FINDINGS: BONES:No acute fracture or dislocation. Moderate enthesopathic spurring of the calcaneus at the insertion of the plantar aponeurosis. SOFT TISSUES:Negative. No visible soft tissue swelling. EFFUSION:None visible. OTHER: Negative. IMPRESSION: No acute fracture Electronically authenticated by: PIERRE MEZA Date: 2020-08-02 12:[address] Diagnosis Chest discomfort- Primary Other chest pain Elevated BP without diagnosis of hypertension History of cigarette smoking documented in this encounter [facility] Healthcare[facility]* Diagnosis Elevated BP without diagnosis of hypertension- Primary Moderate mixed hyperlipidemia not requiring statin therapy ([facility]) Breast screening Breast screening, unspecified Encounter for screening for malignant neoplasm of colon Chest discomfort Other chest pain documented in this encounter [facility]* Diagnosis Encounter for screening colonoscopy- Primary Family history of malignant neoplasm of colon in father [facility] - [facility]orted* Type Description Date Surgical History tubal ligation Surgical History cholecystectomy 1988 Surgical History appendectomy 1988 Surgical History rotator cuff Surgical History tonsillectomy Hospitalization History see above surgical histo ry [facility] Other InstructionsNot on filedocumented in this encounter [facility] SystemReason for referral (narrative)* Consultation (Routine) - Pending Review Specialty Diagnoses / Procedures Referred By Tracy ventura Referred To Contact General Surgery Diagnoses Encounter for screening for malignant neoplasm of colon Procedures MD OFFICE/OUTPATIENT NEW HIGH MDM 60 MINUTES Romario Coelho MD [address] [facility] [address] [place] [address] Manish Gonzales DO [address] [place] [id number] Referral ID Status Reason Start Date Expiration Date Visits Requested Visits Authorized [id number] Pending Review Specialty Services Required 04/06/2023 10/03/2023 1 1 [facility] Summary Purpose Family History No Family History Records FoundNo Family History Records FoundNo Family History Records FoundNo Family History Records Found Advance Directives No Advanced Directives Records FoundNo Advanced Directives Records FoundNo Advanced Directives Records FoundNo Advanced Directives Records Found Additional Source Comments INFORMATION SOURCE (unrecogn ized section and content) DATE CREATED AUTHOR 08/06/2020 [facility] DATE CREATED AUTHOR AUTHOR'S ORGANIZ ATION 11/05/2022 [facility] DATE CREATED AUTHOR AUTHOR'S ORGANIZ ATION 04/07/2023 [facility] EPIC DATE CREATED AUTHOR AUTHOR'S ORGANIZ ATION 05/27/2023 [facility] REASON FOR VISIT (unrecogniz ed section and content) Reason Comments Establish Care Tightness in chest Reason Comments Results labs Follow-up CP and elevated bloo d pressure Reason Comments Colon Cancer Screening SCREENING COLONOS COPY, NO PRIOR, WANTS DONE AT [facility],REFERRED BY DR COELHO,136/85 Specialty Diagnoses / Procedures Referred By Tracy ventura Referred To Contact General Surgery Diagnoses Encounter for screening for malignant neoplasm of colon Procedures MD OFFICE OUTPATIENT VISIT 60-74 MINS HIGH MDM AMB REFERRAL TO GENERAL SURGERY Romario Coelho MD [address] [facility] [address] [place] [address] Manish Gonzales DO [address] [place] [address] Referral ID Status Reason Start Date Expiration Date V isits Requested Visits Authorized [id number] Pending Review 04/06/2023 10/03/2023 1 1 Care Teams (unrecognized sec tion and content) College Tutor Relationship Specialty Start Date End Date Unallocated, [facility] Provider [address] [place] [address] PCP - General 10/28/22 College Tutor Relationship Specialty Start Date End Date Unallocated, [facility] [address] [place] [address] PCP - General 10/28/22 College Tutor Relationship Specialty Start Date End Date Unallocated, [facility] [address] [place] [address] PCP - General 10/28/22 College Tutor Relationship Specialty Start Date End Date Romario Coelho MD [address] [facility] [address] [place] [address] PCP - General Internal Medicine 04/06/23 FOR RECORDS PERTAINING TO PATIENTS WHO ARE OR HAVE BEEN ENROLLED IN A CHEMICAL DEPENDENCY/SUBSTANCEABUSE PROGRAM, SOME INFORMATION MAY BE OMITTED. This clinical summary was aggregated from multiple sources. Caution should be exercised in using it in the provision of clinical care. This summary normalizes information from multiple sources, and as a consequence, information in this document may materially change the coding, format and clinical context of patient data. In addition, data may be omitted in some cases. CLINICAL DECISIONS SHOULD BE BASED ON THE PRIMARY CLINICAL RECORDS. [facility] [employer] [facility]. provides no warranty or guarantee of the accuracy or completeness of information in this document.
== END 2023-06-17 13:46 | disposition home or self-care (01) ==
LOC: PST 13:45
PROVIDERS: PCP Internal Medicine; Visit Provider Surgery
DX: Z01.818 Encounter for other preprocedural examination (principal); Z12.11 Encounter for screening for malignant neoplasm of colon

== ENCOUNTER 2023-06-24 06:17 | Day surgery (SDC) | payer BC, SELFPAY ==
--- OUTSIDE RECORDS SUMMARY | 2023-06-24 06:20 | XMS_ITS | CCD ---
Author Organization [facility] Care Team Providers Care Sustainability Specialist Name Role Phone ASAD, DR LARKIN Admitting Unavailable ASAD, DR LARKIN Attending Unavailable MONTE RIO, DR HUDSON Primary Care Unavailable WEST, DR [...] Unavailable Romario Coelho MD Primary Care Provider [phone] BRANDO MEDLEY Attending Unavailable ROMARIO COELHO Referring Unavailable ROMARIO COELHO Primary Care Unavailable Allergies Allergy Classification Reported Allergen(s) Allergy Type Date of Onset Reaction(s) Facility Contrast Media (1 source) Contrast media Substance Allergy 1 [facility] Repository Opioid Agonists (1 source) Codeine Drug Allergy 1 [facility] Repository (7 sources) Codeine; Translations: [codeine] Drug Allergy 9 Unknown [facility] Repository (8 sources) Contrast media; Translations: [Red Dye] Propensity to adverse reactions to food (disorder) 9 Unknown [facility] Repository (1 source) Codeine Drug Allergy stomach upset [facility] Other Medications Current Medications Medication Drug Class(es) [...] Coding Summaryon 11-04-2022 Coding Summary HTMLBase 64 HnlfbjmcWKe5mUq+PGhlY WQ+NH1VRFOcL13fjOAxoC 9sY2HQGYvVPctuUKQXCDe GPmXlrbKhFI6glTMiDNHa IC8+SY2rTTAgHudrpFNaw 6U8jPR7X35lde6wSPfbdS S6DKQaWjAxzygho3jmfCk 6IDcuNmluOyBt TYUesB01YZM3nX68Ky05h NEhdLTjy0ekfNv8WjFrZN XuBHA4mFpxQLqwe7WfLAI zX72zyOHvd4G3 GBQjoSzjcPKeWyDefCN4g F0kAXvmbzgld4pmbujnWy a6gp52qALcm0T4lRS8U1F odrG9FLSikJEx AqiokMJBiQ8sczuoe3kpe vyyIwTtPHGzSXb0DUj2XI YvvLypKmAtRU37GAX5TJT fpjVmH2GuCEXf sXbcOtE3n4B2Je0NF3QEH bpvI1XTIEJRSNzzrPA+PC 98xk29N2GwMoutCqz2IHF bDUQ8nDK2iS8e YDCtGDhoh5U2pZP1B8Ouz zOmme5gd8bjQDByAEndS7 8lzMTnj8S1JKVbqMU9RYH tlJmnMwQhnS69 Oyc+FILjoMssc4QgLfjuw 3bnz2kgkNk0FzjkUVRvfs VnuQnaOOY7s3TuDz5pJEB zrRP3wLE8sG7n KfHlHrM1XKvpR180NpRhf UOpIuavF56nB9ProOD+PH VkDlt0QKNlcGkaBQ4vI8O hZGRpbmctbGVm wExwSF2yZHKwlgqnQNTmi N5kDKYuL3v9TdBbLdO3TC qpD0UsFAOfyczgMa21qI2 tAqUmTbF8CPtt J1OxlmH5BXWbhSBwWPeiH KQ0U67lz3G4ZQCiGNEiGV I9mKG9eB4npOynyyzycHX mdDsgdmVydGlj UNkvNMhzU915PQAaoExxF kNvZGluZyBEYXRlOiAgMD kvMTIvMjAyMzwvdGQ+PHR aFKT5hBftQCHe fXMeJCilMe4eaEkstCehT V2kMJZmepxkFEXvpQ1zBB YayJLgxIfcBD4iTXWdxlh cc578ClErNKC3 AXRewQKeM4LmcE2zOxJnC GCeTPUeU7YjtIMbDTyzQ1 92ZImqAmX2OUWuagJqU2L sLWFsaWduOiB0 e4X2Zs0Aq8HwvkghQ5Rac QDoDwZfXxueDOx6F1AlTo wvdHI+OQ26WRYyGN21LWg 4COJ5uOdmMNaw IUZyF8WhrK2iEjDwKAJnV GRkOyc+PHRhYmxlIHdpZH RoPScxMDAlJyBzdHlsZT0 eQo0eLDLpIBPp xOfveZCoFvIoi5ywKUTiZ SqqIG0rlMifH3NnbPX7YT Jua6b0Rb04J18lQ0QggYQ +FUHweWE5pZD3 iO3aKaNfVvR7LFecE486H oFgjQAiGmlzt8kom5cktS y9SsF5LQMhhuHudJzjLCM 1n4SqLa29W32c IHdpZHRoPSIxNSUiIHZhb Zejqt7yoB4vDr0+PGNvbC Y9fDX9aD7vLuMcBrO7TZv cW959WaRrkWIu Nvkco5gcm3gunJb8PyOkW CFvyqEfdFbpCTW6g6QcLz 02X6VvzBsdn9RmZbi2da9 1bOSjr6K9fEI0 Q2FlYBJpzafddRGgfOjnY B3mFFPiczbtTWQeaB2iTY FvV0v6SpPoWeY4YLjfB2O oarT9ZAIlsEYl OKYcrEOWhH1rstmlw3omt udrIhKuJVVgZCj9MTs3GD KdbWawShGhYVV4ToX7PWG 2rYAhlH5sfSvt sralmP9xJlw+FZI9ePCqo KTUFZ2vItszfCI+PHRkIH D1zYxeIHcoRDIfqW7lKVF eD0j2HfEfHiU0 UAawX7FhflK2ZBBnjRDwS KPciXYPiX7hctdny2ftqd jvJmYeAYKjWWu9GPj6PVC saWduOiBsZWZ0 AvI5AXU6kOBwfT1imUpgb thouS6zPag+QmlydGggRG R2FIf2Z8OxUpa8HEYyfNt nBF3coFWdTWfs Kl5thDkooIgbCY7lRZYeo hnrr917TuSql5efWJHbxG ReYHxhNUY0Q57ku8G7TFG fFFKzNNP1fNK8 cN5ejIlhrmulrEUjcVrlv lAqhRltIMpmDBhiJ994GB PpiJyrSnPjHPi8B1LlSjt 6NVBiiOnyCN3j vATfXQjlOi8ekXmyjBskD J1fYJWytpfix702AhQnf0 kbSDYomKQqFHwfHHX9E79 ko8V9BIYsLOVt LND5uCR8kO1bnWvvjihnr GVmdDsgdmVydGljYWwtYW krD933PSCfoYbeLlNafPe 2H0HzMzu6GHCh gEibLQ0fzTPxRZcdPp2hj EezbEjoIN6jXQOttousj5 93WaYre1qfKNIihTFtTAv mQKA2E04zg4R3 NPArIOVdGGW4vUU8vL0vk GlnbjogbGVmdDsgdmVydG xyCXavUJfyP014BWFsiDm nPlBhdGllbnQg IEnsRBm6E3AeXpppkDR+P O54KKGoLE22dWPrwGRin5 uhqZr3DsAdZQNdZWZ6gIi fRMtik6AqEIAq X30xzJNue5H6QPTgbJeat URtXrTcvLA2cP9jVCqxnv qef8osyxpaBvmvx6bzhi7 7wQ52Q42kMBxd ZHRoPSIzMCUiIHZhbGlnb c4uxV4cXu1+JUJirEC8eO U5pM1aABZxGkE8SGwaK57 9InRvcCIvPjxj w9qxp9rwlWv7IcX8NMYdb dAbvMqeIJO1u1KnUh59G4 9sIHdpZHRoPSIyMCUiIHZ gyTcfnq2fbT4y Ii8+HOBdmTM1uAK9kZ0dI cXaToP6ZRjfL235UvYhhP FaSkjoM03kN8RfyEK+PHR kLfs5XJTvuRmt OX7vkVNgXUdtYd4aKLJ3I kSwKgXaLFuyW4UgQSAavt hjqhhicAX9QUAuXQAtoM4 4Aa0gpHcvWOHf kQOLsN4fodjsy9gxaxhnV bFvYIDlZIi6YOa7FJJfoO zoTmDnOMY9PqP0QYE2qJL nzV1zhLzolbcs rQ7lK7YuKJOohkhfCk83u Q7iYtTnHeH5ZXwhIxv+Q1 VFVkFTLCBKQUNRVUVMSU5 TVZZ8G3AkQqp1 TSBcsUpbOG7eyFNqXFsjU s1jdYkikRyvIP1hRYNofj xqDMXleP3nBLOqmBPoxNk xZP1eVRJmofqh n128ChHdJHH9UXOyeIRzK 1MbbE4jJaRbORMqICQnI3 WvpDQfCErmN479SOnqYxY 8HQGahwQlK9Pg HQQoaQppCvG8o6U6Or3cM k3cKv2tDAP9WS25QE91jM Dao6T5cYT1R8NoRNYpxtz qsrpfoPM6XVFk AIPvrC52hWQnIJszGx8yk 2W9c446WBEgUTKzyV80Uf 4wgLgaBQWyqTWTjB6idpi id7skgzmxCiSo KTPaGAy1IBj9JNWwrJuyY yRxNQO1OeV5SAJ0gVIvbK 5gnBjrrzhdfK4uPmi+NTU cPKDszrK0X5Vu Mxx0JCLiiPpiCR9duVCvL ZihJa8mgQvlcThqIH9fOA ZmskebMKYekF3dABIqhFQ ynQjnUA3wOKAb nmxaa857UuZlPGB7BJGss JMdN0LkrZ0oYzHzPSKtYR OlF6UkjSAwHTzcB201EGo uOlC0PVXibyIf U2WnIWDxgSayXwJ2x4C2U d1MDC2ZTHB3T9JrYzo0TG RyzJzzJX4uxNQlBDpnLs0 ncYepsRjxRE3p COJxzuxdTQCcuE0bZEXdl YVinRtsJF4sNUNsdkvbl3 79HuKoYHY7FTIffLWkE3E anP0sXuAoRMPd WUWfH8VhwCDxJYbyW241Q WchQoV4GLRuwfRkQ3SxOS AbmJhpMdF2c1O8Ll1RhIK lF9XuZ3r8T0Dh PjwvdHI+TP88KYLfMI72r AYeqVFxe1jtmZz2WiNjHL PhWXI6hBicOYvph0UnJRR kG91ukYZad7B4 PVVptVypsIZgEkOvtIL3d D5pRDctityhs8vfqpqqSk upl3lnfa99lB90A61tGLj pZHRoPSIzMCUi RTWdqVvsjc8dhV2zWk2+P ZHtzRR2mJR6aV9dVaLsSa A7JPutV513NoOuyYVjXsd tp9ghi2luwYr7 HqIaJZFeqsNniKrkQKH6c 0NnUc63D25sHCrrYFNrHH WqDXDvKNUegIohwb5spV5 wIi8+NX5wu4ol ri41aJ65pFV+JKAeTXF3o NqrXIdkAWLlnG5nNHobVe D7HLDfCkNnkP21nNPkALq xTl8bmZegsTdm XB5gZZHepwvzf971TiNmt 8nuDILtlQScKIpjWUR2A5 6nq3Y4YYJiMLOzSVO5hQJ 9dW4gpCmfhauk bGVmdDsgdmVydGljYWwtY RypT900IIJamJqdLzLnxT RyH6vmwyFZAR9fTmhyjHE +RKYnHLP4mFpn XFbfSLJbuO8wINXxX2o1S fEqPhB4ZNfmN7HxnpZ9PS LfxBGtJFJtdUBZzM1jjro qd5lzavvcHxVj WXBdLPx4RUv1VOYjrBlyR eHjHKS6EkK4RZC0kCJsxI 4yzDjialgbxI7rExo+Rkl OOjwvdGQ+PHRk MWX7gWqgPQaxGHUsnM1xW FShX1x2YgPhEgJ3RMavQ9 IghsE9HXGlsYJeFILuzGP PlN2mnfmhq3qs mvtrDlMuXVSoSXz5QBv4C XUmyZorEvHaHQO4KqH7KN Z2pSEcpY2pbYzpryxmlQ1 wOyc+TVJOOjwv dGQ+VSLxNIH9nPieCZhdN VQdjK2yXQZmA5m6DmHqGp N0UXdfP2VlgnF8NYIvpPI aQNGeaUQBgG2h zuziq2ucprviIdFiCIThO Pj5PRj5GRZqsAjpCdMpTS X4PtH9FVK2xJIijL2koLo tmuvujK2oDsh+ ENV6ZIR3SB06AF81X5XwK jwvdGFibGU+PHRhYmxlIH dpZHRoPScxMDAlJyBzdHl jDG0iBj4aYQOm LWN (more content not included)... Normal [facility] ED Clinical Summaryon 2022 ED Clinical Summary [facility] - Emergency Department [address] [place] [id number] ED Clinical Summary PERSON INFORMATION Name: CATRACHITA HUTCHISON Age: 57 Years Sex: FEMALE : 1965 MRN: Acct#: Visit Reason: Buttock Injury; Fall; Ankle injury - Minor; FALL-LFT ANKLE/RT BUTTOCKS PAIN Arrival: 10/24/2022 11:00:52 Discharge: 10/24/2022 13:34:00 LOS: 000 02:34 Check In: 10/24/2022 11:00:52 Checkout:10/24/2022 13:34:00 Address: [address] [place] [address] [address] [facility] [id number] PCP: Provider, Unlisted PROVIDER INFORMATION Provider Role [...] Oxygen Therapy Room air . General: Alert. Centereach coma scale: Total score: Total score: 15. [...] the patien (more content not included)... Normal [facility] ED Note - Physicianon 2022 ED [...] Oxygen Therapy Room air . General: Alert. Centereach coma scale: Total score: Total score: 15. [...] occurred at h (more content not included)... [facility] ED Note-Nursingon 10-24-2022 ED Note-Nursing Patient arrives to the ED via private vehicle. Wheeled to ED room 6. Alert and oriented X4. C/O left ankle pain and swelling and right buttocks pain. Patient reports tripping and falling. Patient reports previous history of left ankle injuries. Normal [facility] ED Patient Summaryon 023 ED Patient Summary [facility] - Emergency Department [address] [place] [address] PATIENT DISCHARGE INSTRUCTIONS Patient Information Name: CATRACHITA HUTCHISON Age: 57 Years Date of : 1965 Reason For Visit: Buttock Injury; Fall; Ankle injury - Minor; FALL-LFT ANKLE/RT BUTTOCKS PAIN Arrival Time: 10/24/2022 11:00:52 Primary Care Physician: Provider, Unlisted Attending Physician: Ruben Llanes MD Comment: Visit Diagnosis: Diagnoses This Visit Ankle injury - Minor ([id number]) Buttock Injury ([id number]) Closed nondisplaced fracture of fifth metatarsal bone (S92.356A) Contusion, buttock (S30.0XXA) Fall ([id number]) Fall on same level from slipping, tripping or stumbling (W01.0XXA) Moderate left ankle sprain (S93.402A) The Pharmacy at [facility] is open Thursday through Thursday from [...] alcohol and/or drug addiction problems; contact the [facility] 15/09 Crisis Hotline -Text 4HJOP gc [phone]. If you received any narcotics, sedation, or [...] crutches for support. Nonweightbearing until reevaluated. Contact religious educator or orthopedics of your choice in your hometown. Return to ER for any worsening symptoms especially any symptom that concerns you. Medication Information: The exam and treatment you received today in the [facility] Emergency Department were for an urgent problem and are not intended as complete care. It is important for you to follow up with a doctor, nurse practitioner, or physician?s blood bank assistant for ongoing care. If your symptoms [...] so we can reach you if necessary. [facility] Emergency Department has provided you with a complete list of medications post discharge. Please inform your residential builder/provider of your visit and for further instruction on these medications. Any specific questions regarding your chronic medications and dosages should be discussed with your primary care physician(s) and/or pharmacist. New Medications [facility], [address] [place], [place] [id number], [phone] acetaminophen-hydroco done (acetaminophen-hydroc odone 325 mg-5 mg [...] Patient Education (more content not included)... Normal [facility] XR Ankle Complete Lefton XR Ankle [...] MD 10/24/22 12:25 p Technologist: RAFAEL CRUZ [facility] XR Foot Complete Lefton XR Foot [...] Johnson MD 10/24/22 12:25 p Technologist: ANTHONY [facility] XR Sacrum/Coccyx Minimum 2 V ws [...] Johnson MD 10/24/22 12:27 p Technologist: ANTHONY [facility] Vital Signs Date Time Vital Sign Value Performing Clinician Facility 05-26-2023 10:040 Body height 165.1 cm Brando ASH Work Phone: [facility] 05-26-2023 10:27-040 Body mass index (BMI) [Ratio] 32.55 kg/m2 Brando ASH Work Phone: [facility] 05-26-2023 10:27040 Body weight 88.72 kg Brando ASH Work Phone: [facility] 05-26-2023 10:27-0400 Diastolic blood pressure 85 mm[Hg] Brando Medley [employer]EL[employer] Work Phone: [facility] 05-26-2023 10:27-0400 Systolic blood pressure 136 mm[Hg] Brando Medley [employer] Work Phone: [facility] 04-06-2023 10:10-0500 Body height 165.1 cm Romario Coelho MD Work Phone: [facility] 04-06-2023 10:10-0500 Body mass index (BMI) [Ratio] 32.45 kg/m2 Romario Coelho MD Work Phone: [facility] 04-06-2023 10:10-0500 Body weight 88.45 kg Romario Coelho MD Work Phone: [facility] 04-06-2023 10:10-0500 Diastolic blood pressure 84 mm[Hg] Romario Coelho MD Work Phone: [facility] 04-06-2023 10:10-0500 Heart rate 77 /min Romario Coelho MD Work Phone: [facility] 04-06-2023 10:10-0500 SaO2% (BldA) [Mass fraction] 98 % Romario Coelho MD Work Phone: [facility] 04-06-2023 10:10-0500 Systolic blood pressure 136 mm[Hg] Romario Coelho MD Work Phone: [facility] 03-26-2023 14:11-0500 Body mass index (BMI) [Ratio] 32.28 kg/m2 Romario Coelho MD Work Phone: [facility] 03-26-2023 14:11-0500 Body weight 88 kg Romario Coelho MD Work Phone: [facility] 03-26-2023 14:11-0500 Heart rate 92 /min Romario Coelho MD Work Phone: [facility] 03-26-2023 14:11-0500 SaO2% (BldA) [Mass fraction] 97 % Romario Coelho MD Work Phone: [facility] 12-04-2022 14:30-0400 Body height 165.1 cm Myra Borges Other [facility] Other 12-04-2022 14:30-0400 Body mass index (BMI) [Ratio] 30.78 kg/m2 Myra Borges Other [facility] Other 12-04-2022 14:30-0400 Body temperature 98.3 [degF] Myra Borges Other [facility] Other 12-04-2022 14:30-0400 Body weight 83.92 kg Myra Borges Other [facility] Other 12-04-2022 14:30-0400 Diastolic blood pressure 86 mm[Hg] Myra Borges Other [facility] Other 12-04-2022 14:30-0400 Respiratory rate 18 /min Myra Borges Other [facility] Other 12-04-2022 14:30-0400 SaO2% (BldA) [Mass fraction] 98 % Myra Borges Other [facility] Other 12-04-2022 14:30-0400 Systolic blood pressure 124 mm[Hg] Myra Borges Other [facility] Other Encounters Encounter Date Encounter Type Care Provider Facility Start: 05-26-2023 End: 05-26-[address] [facility] Gem MEDLEY [facility] Start: 05-26-2023 End: 05-26-2023 Patient encounter procedure Brando Medley [employer] Work Phone: [facility] Comment on above: Encounter for screen ing colonoscopy (Primary Dx); Family history of malignant neoplasm of colon in father Start: 04-06-2023 RanjitPeakoso flowsheet Romario pascual MD Work Phone: [facility] Start: 04-06-2023 RanjitPeakoso flowsheet Romario pascual MD Work Phone: [facility] [...] smoking Start: 02-03-2023 End: 02-04-2023 ambulatory HAILE EMDINA Not Available Start: 01-06-2023 End: 01-07-2023 ambulatory HAILE MEDINA Not Available Start: 12-04-2022 End: 12-04-2022 ambulatory Myra Borges Other [facility] Other Start: 12-04-2022 Office outpatient ne w 30 minutes Myra Borges [facility] [place] Start: 10-24-2022 End: 10-24-2022 Emergency department patient visit Ruben Llanes Facility:[facility] Start: 08-02-2020 End: 08-02-[address] CHAYA KAMARA Facility: Plan of Treatment Date Care Activity Detail Author Start: 05-25-2024 Adult BMI Screening Adult BMI Screen ing [facility] Start: 05-25-2024 Tobacco Screening Tobacco Screening [facility] Start: 10-25-2023 Influenza vaccination Influenza Vacc ine [facility] Start: 10-05-2023 End: 10-05-2023 Patient encounter procedure 10/05/2023 8:30 AM EDT Office Visit [facility] [address] [place] [address] Romario Coelho MD [address] [place] [address] [facility] Start: 04-06-2023 End: 06-04-2024 MG Breast - bilateral Screening Bilateral screening mammogram Imaging Routine Breast screening Expected: 04/06/2023 (Approximate), Expires: 06/04/2024 [facility] Work Phone: Comment on above: Expected: 04/06/2023 (Approximate), Expires: 06/04/2024 Start: 04-06-2023 End: 04-06-2023 Patient encounter procedure 04/06/2023 10:15 AM EST Office Visit [facility] [address] [facility] [address] [place] [address] Romario Coelho MD [address] [place] [address] Arrived [facility] Comment on above: [...] of hypertension Expected: 03/26/2023 (Approximate), Expires: 03/26/2024 [facility] Work Phone: Comment on above: Expected: 03/26/2023 (Approximate), Expires: 03/26/2024 Start: 10-24-2022 COVID-19 Vaccine () COVID-19 Vaccine () [facility] Start: 2017 Administration of varicella zoster vaccine Zoster (Shingles) Vaccine (1 of 2) [facility] Start: 2007 Screening for malign ant neoplasm of breast Mammogram [facility] Start: 1997 Screening for malign ant neoplasm of cervix [facility] Start: 02-14-1988 Screening for malign ant neoplasm of cervix Pap Smear [facility] Start: 1986 DTaP,Tdap and Td Vaccines (1 - Tdap) DTaP,Tdap and Td Vaccines (1 - Tdap) [facility] Start: 1985 Adult BMI Follow Up Plan Adult BMI Follow Up Plan [facility] Start: 1979 Depression Screening Depression Scre ening [facility] Start: 1965 Screening for malign ant neoplasm of colon [facility] End: 05-24-2024 Colonoscopy Colonoscopy GI Routine Encounter for screening colonoscopy 1 Occurrences starting 05/26/2023 until 05/24/2024 [facility] Work Phone: Comment on above: 1 Occurrences starti ng 05/26/2023 until 05/24/2024 Immunizations Immunization Date Immunization Notes Care Provider [facility] 01-12-2023 influenza, injectabl e, quadrivalent, preservative free Romario Coelho MD Work Phone: [facility] 01-12-2023 influenza virus vaccine, unspecified formulation Brando ASH Work Phone: [facility] Payers Date Payer Category Payer Unknown [id number] 1965 Unknown [id number] 2.16.84 [id number] 1965 Unknown [id number] 2.16.8 [id number] 1965 Unknown [id number] 2.16.84 [id number] 1965 Unknown [id number] 2.16.84 [id number] 1965 Unknown [id number] [id number] .[id number] 1965 Unknown [id number] 2.16.840 .[id number] 1965 Unknown [id number] 2.16.840 .[id number] 1965 Unknown [id number] 2.16.840. [id number] 1965 Unknown [id number] 2.16.8 [id number] 1957 Unknown [id number] Social History Date Type Detail Facility Unknown if ever smoked [facility] Other Start: 04-05-2020 End: 03-26-2023 Sex Assigned At [facility] Start: 10-28-2022 End: 05-26-2023 Tobacco smoking status [facility] Ex-smoker [facility] End: 03-26-2022 History of tobacco use Current smoker [facility] End: 03-26-2022 History of tobacco use Cigarette Smoker [facility] Start: 10-28-2022 End: 05-26-2023 Tobacco use and exposure Smokeless tobacco non-user [facility] Start: 04-05-2020 End: 03-26-2023 History of Social function [facility] Start: 1965 Sex Assigned [facility] Start: 10-28-2022 Gender identity Identifies as female gender (finding) [facility] Within the last year , have you been afraid of your partner or ex-partner? No [facility] How often do you attend congregational or latter day services? 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[employer] energy of alcohol (finding) [facility] Start: 1965 Sex Assigned At Not on file P [facility] Clinical Notes 08-02-2020 to 05-26-2023 Brando Medley APRN-[facility] - 05/26/2023 10:30 AM Prabha Coelho MD - 04/06/2023 10:15 AM Tanya Coelho MD - 03/26/2023 2:00 PM EST [...] patient/family/caregiver Referring and communicating with other health rn coronary care unit Encounter for screening colonoscopy [Z12.11] NILSA REDD [facility] [place] This note was created with the assistance of a speech recognition program. While intending to generate a timely document that accurately reflects the content of the visit, no guarantee can be provided that every grammatical or spelling mistake has been or will be identified or corrected. Thank you for your understanding. NILSA Redd 05/26/23 1049 documented in this encounter [facility] 04-06-2023 History of Present illness Narrative [...] LDL-C. Duke SS et al. SLICK. 2013;310(19): 8978-1239 (http://education.Turbocoating/faq/IPK702) CHOL/HDLC RATIO 03/26/2023 3.7 <5.0 (calc) Final [...] F/U, Test/Lab Review. documented in this encounter [facility] 03-26-2023 History of Present illness Narrative Subjective Patient ID: Catrachita Hutchison is a 58 y.o. female who presents for Establish Care (Tightness in chest ). 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 documented in this encounter [facility] 12-04-2022 Evaluation note Encounter Date Diagnosis Assessment [...] of diseases classified elsewhere (ICD-10 - B97.89) [facility] Other 09-01-2023 [employer] [facility] Metatarsal Fracture [...] This may take several hours. ? Take dqsb-ext-zxxpcfi and prescription medicines only as told by [...] or your foot, ev (more content not included)...[id number] NotePROCEDURE: XR FOOT LT MIN 3 VIEWS COMPARISON: 07/27/2012 HISTORY: Injury of left foot FINDINGS: BONES:No acute fracture or dislocation. Moderate enthesopathic spurring of the calcaneus at the insertion of the plantar aponeurosis. SOFT TISSUES:Negative. No visible soft tissue swelling. EFFUSION:None visible. OTHER: Negative. IMPRESSION: No acute fracture Electronically authenticated by: PIERRE MEZA Date: 2020-08-02 12:50[facility] Chest discomfort- Primary Other chest pain Elevated BP without diagnosis of hypertension History of cigarette smoking documented in this encounter [facility]* Diagnosis Elevated BP without diagnosis of hypertension- Primary Moderate mixed hyperlipidemia not requiring statin therapy ([facility]) Breast screening Breast screening, unspecified Encounter for screening for malignant neoplasm of colon Chest discomfort Other chest pain documented in this encounter [facility]* Diagnosis Encounter for screening colonoscopy- Primary Family history of malignant neoplasm of colon in father [facility] - [facility]* Type Description Date Surgical History tubal ligation Surgical History cholecystectomy 1988 Surgical History appendectomy 1988 Surgical History rotator cuff Surgical History tonsillectomy Hospitalization History see above surgical histo ry Meiyou Other InstructionsNot on filedocumented in this encounter [facility] for [facility] (narrative)* Consultation (Routine) - Pending Review Specialty Diagnoses / Procedures Referred By Tracy ventura Referred To Contact General Surgery Diagnoses Encounter for screening for malignant neoplasm of colon Procedures [place] OFFICE/OUTPATIENT NEW HIGH MDM 60 MINUTES Romario Coelho MD [address] [facility] [address] [place] [address] Manish Gonzales DO [address] [place] [id number] Referral ID Status Reason Start Date Expiration Date Visits Requested Visits Authorized [id number] Pending Review Specialty Services Required 04/06/2023 10/03/2023 [...] and content) DATE CREATED AUTHOR 08/06/2020 [facility] DATE CREATED AUTHOR AUTHOR'S ORGANIZ ATION 11/05/2022 [facility] DATE CREATED AUTHOR AUTHOR'S ORGANIZ ATION 04/07/2023 [facility] EPIC DATE CREATED AUTHOR AUTHOR'S ORGANIZ ATION 05/27/2023 [facility] REASON FOR VISIT (unrecogniz ed section and content) Reason Comments Establish Care Tightness in chest Reason Comments Results labs Follow-up CP and elevated bloo d pressure Reason Comments Colon Cancer Screening SCREENING COLONOS COPY, NO PRIOR, WANTS DONE AT [facility],REFERRED BY DR COELHO,136/85 Specialty Diagnoses / Procedures Referred By Tracy ventura Referred To Contact General Surgery Diagnoses Encounter for screening for malignant neoplasm of colon Procedures [place] OFFICE OUTPATIENT VISIT 60-74 MINS HIGH MDM AMB REFERRAL TO GENERAL SURGERY Romario Coelho MD [address] [facility] [address] [place] [address] Manish Gonzales DO [address] [place] [address] Referral ID Status Reason Start Date Expiration Date V isits Requested Visits Authorized [id number] Pending Review 04/06/2023 10/03/2023 1 1 Care Teams (unrecognized sec tion and content) Sustainability Specialist Relationship Specialty Start Date End Date Unallocated, [place] Provider [address], [place] [id number] PCP - General 10/28/22 Sustainability Specialist Relationship Specialty Start Date End Date Unallocated, Noms Provider [address] [facility] [address] PCP - General 10/28/22 Sustainability Specialist Relationship Specialty Start Date End Date Unallocated, Noms Provider [address] [place] [address] PCP - General 10/28/22 Sustainability Specialist Relationship Specialty Start Date End Date Romario Coelho MD 112 [facility] 110 [place] [address] PCP - General Internal Medicine [...] BE BASED ON THE PRIMARY CLINICAL RECORDS. [facility]. provides no warranty or guarantee of the accuracy or completeness of information in this document.
[2023-06-24 06:30] VITALS: BP 125/70; PULSE 84; TEMP 36.2; O2SAT 94; BMI 32.0
[2023-06-24] MEDS: LACTATED RINGER'S SOLUTION 1,000 ML 50 ML IV (07:07)
[2023-06-24 07:11] LABS: HCG Quantitative 8 mIU/mL
--- NOTE | 2023-06-24 07:23 | PC.NURSE ---
Dr. Gonzales and Dr Green were updated about hcg test result of 8 and patient was undated and agrees to the procedure 0724 am
--- NOTE | 2023-06-24 07:27 | P.GSPRC_ITS ---
Date of procedure: 06/24/23 Indications for Procedure: screening for cancer family history of colon cancer in father Pre-op diagnosis: screening for cancer;family history of colon cancer in father Post-op diagnosis: other (colon polyp less than 5 mm ascending colon; single diverticulum sigmoid colon) Procedure: colonoscopy hot snare polyp ascending colon Findings: colon polyp/diverticulosis minimal Anesthesia: MAC Surgeon: Manish Gonzales Procedure Summary: PROCEDURE: The patient was taken to the Endoscopy Suite, placed in the left lateral recumbent position, given IV sedation as above. A rectal digital exam was performed. The sphincter tone was found to be normal. No rectal masses w ere appreciated. The Olympus video colonoscope was advanced under direct visualization to the rectum, sigmoid colon, descending colon, transverse colon and ascending colon to the ileocecal valve. The underside of the valve was seen. appendiceal lumen was visualized and bowel prep was excellent. Patient had abdominal pressure placed on the abdomen in order to get to the cecum. The scope was slowly withdrawn with air being desufflated as it was withdrawn. No gross tumors were seen. there was a small 5 mm polyp which was sessile which was hot snared and not retrieved. Hemostasis was maintained. There was one diverticulum in the sigmoid colon. Retroflexing in the rectum which was normal. The patient tolerated the procedure well and went to the Recovery Area in satisfactory condition. I recommend the patient use a bulk laxative on a regular basis and follow up five years for repeat colonoscopy due to family history of colon cancer and the sessile polyp being found. Estimated blood loss (mL): 0 Specimens: none Complications: No Pathology: none sent Condition: stable Disposition: PACU
[2023-06-24 07:51] VITALS: BP 122/76; PULSE 74; O2SAT 98
[2023-06-24 08:05] VITALS: BP 125/76; PULSE 69; O2SAT 98
== END 2023-06-24 08:22 | disposition home or self-care (01) ==
PROVIDERS: PCP Internal Medicine; Visit Provider Surgery
PROC: (CPT 812; principal; 2023-06-24 07:30)
DX: Z12.11 Encounter for screening for malignant neoplasm of colon (principal); K63.5 Polyp of colon; K57.30 Diverticulosis of large intestine without perforation or abscess without bleeding; Z80.0 Family history of malignant neoplasm of digestive organs; Z90.49 Acquired absence of other specified parts of digestive tract; Z98.51 Tubal ligation status; Z87.891 Personal history of nicotine dependence
CPT/HCPCS: 45385; 36415; 84702; J2704

== ENCOUNTER 2024-11-09 13:26 | Outpatient (OUT) | payer BC, SELFPAY ==
--- OUTSIDE RECORDS SUMMARY | 2023-01-12 05:15 | XMS_ITS | Continuity of Care Document ---
Author Organization [facility] Address [address] [place] [address] Phone Care Team Providers Care Gear Design Engineer Name Role Phone Romario STEWART, Dino Unavailable Unavailable Procedures Procedure Date IMMUNIZATION ADMIN FLU VAC NO PRSV 4 ERNA 3 YRS+ Advance Directives Directive Yes / No Effective Date File Name No Information Encounters Encounter Description Practice Location Reason(s) For Visit Diagnoses Date Provider Providers Copied on Encounter [facility], [address], [place], [id number], [place] tel:[phone] [facility] No Information Romario ALMONTE Dino. [address], [place], [id number], [place]. tel:[phone] Family History Family Member Type Diagnosis Age At Onset No Information Immunizations Vaccine Date Status Comments Flulaval/ Fluarix administered Source: [place] w Immunization Record Payers Payer name Insurance type Covered democrat ID [id number] [id number] Social History Type Description Quantity Date Captured Comments Alcohol Use Details Unknown Caffeine Use Details Unknown Tobacco Use Status No Information Smoking Status No Information Sex Female Sexual Orientation Straight or heterosexual Gender Identity Female Chief Complaint And Reason For Visit No Information Reason For Referral Reason For Referral No Information Plan Of Treatment Date Type Action Status Goal CT-Colonography. Due on due Goal Lipid panel. Due on 023 due Goal Hep A. Due on du e Goal Tdap. Due on due Goal Influenza vaccine. Due on No v due Goal Depression screening. Due on due Goal FIT-DNA. Due on due Goal Unhealthy drug use screening . Due on due Goal Tdap Vaccine. Due on 2022 due Goal Colonoscopy. Due on due Goal HPV. Due on due Goal Zoster vaccine (). Due on due Goal PRAPARE ASSESSMENT. Due on N due Goal FIT. Due on due Goal FOBT. Due on due Goal Hepatitis C screening. Due o n due Goal Mammogram. Due on due History Of Present Illness Encounter Date Complaint History Of Prese nt Illness No Information Functional Status Date Functional Assessmen t No Information Instructions Date Instruction Additional Infor mation No Information Assessments Type Assessment Date No Information Patient Care Teams Name Effective Dates (start - stop) Status Members No Information
--- OUTSIDE RECORDS SUMMARY | 2024-11-01 09:00 | XMS_ITS | Encounter Summary ---
Author Organization [facility] Address [address] [facility] [place] [address] Care Team Providers Care Fence Supervisor Name Role Phone Romario Coelho MD Unavailable [phone] Encounter Details Date Type Department Care Team (Late st Contact Info) Description 11/01/2024 9:00 AM EDT Office Visit [facility] [address] [facility] [address] [place] [id number] Eva Posey PA [address] [facility] [address] [place] [address] Acute pain of left knee (Primary Dx); Encounter for screening mammogram for malignant neoplasm of breast Social History Tobacco Use Types Packs/Day Years Used Date Smoking Tobacco: Former Cigarettes Q uit: 03/2022 Smokeless Tobacco: Never Tobacco Cessation:Counseling Given: Not Answered Alcohol Use Standard Drinks/Week Comments Yes 0 (1 standard drink = 0.6 oz pur e alcohol) Humiliation, Afraid, Rape, and Kick questionnair e Answer Date Recorded Within the last year, have y ou been afraid of your partner or ex-partner? No 04/01/2023 Within the last year, have y ou been humiliated or emotionally abused in other ways by your partner or ex-partner? No Within the last year, have y ou been kicked, hit, slapped, or otherwise physically hurt by your partner or ex-partner? No 04/01/2023 Within the last year, have y ou been raped or forced to have any kind of sexual activity by your partner or ex-partner? No 04/01/2023 Social Connection and Isolat ion Panel [NHANES] Answer Date Recorded In a typical week, how many times do you talk on the phone with family, friends, or neighbors? More than three times a week 04/01/2023 How often do you get togethe r with friends or relatives? Three times a week 04/01/2023 How often do you attend chur or druze services? Patient declined 04/01/2023 Do you belong to any clubs o r organizations such as taoist groups, unions, fraternal or athletic groups, or school groups? No 04/01/2023 How often do you attend meet ings of the clubs or organizations you belong to? Patient declined 04/01/2023 Are you , , di vorced, , never , or living with a partner? 04/01/2023 AUDIT-C Answer Date Recorded Q1: How often do you have a drink containing alc ohol? Monthly or less 11/01/2024 Q2: How many drinks containi ng alcohol do you have on a typical day when you are drinking? 1 or 2 11/01/2024 Q3: How often do you have si x or more drinks on one occasion? Never 11/01/2024 Overall Financial Resource Strain (CARDIA) Answe r Date Recorded How hard is it for you to pa y for the very basics like food, housing, medical care, and heating? Not hard at all 04/01/2023 PHQ-2 Answer Date Recorded Patient Health Questionnaire-2 Score 0 11/01/2024 [facility] Questionnaire Answer Date Recorded Do you feel stress - tense, restless, nervous, or anxious, or unable to sleep at night because your mind is troubled all the time - these days? To some extent 04/01/2023 Exercise Vital Sign Answer Date Recorde d On average, how many days pe r week do you engage in moderate to strenuous exercise (like a brisk walk)? 5 days 04/01/2023 On average, how many minutes do you engage in exercise at this level? 20 min 04/01/2023 Hunger Vital Sign Answer Date Recorded Within the past 12 months, y ou worried that your food would run out before you got the money to buy more. Never true 04/01/19 24 Within the past 12 months, t he food you bought just didn't last and you didn't have money to get more. Never true 04/01/2023 PRAPARE - Transportation Answer Date Re corded In the past 12 months, has l ack of transportation kept you from medical appointments or from getting medications? No 08/2023 In the past 12 months, has l ack of transportation kept you from meetings, work, or from getting things needed for daily living? No 04/01/2023 Housing Stability Vital Sign Answer King e Recorded In the last 12 months, was t here a time when you were not able to pay the mortgage or rent on time? No 04/01/2023 In the last 12 months, how many places have you lived? 1 04/01/2023 In the last 12 months, was t here a time when you did not have a steady place to sleep or slept in a mcfp (including now)? No 04/01/2023 Comments Unknown Sex and Gender Information Value Date Recorded Sex Assigned at Female 10/28/2022 11:28 AM EDT Legal Sex Female 8:25 PM EDT Gender Identity Female 10/28/2022 11:28 AM EDT Sexual Orientation Not on file documented as of this encounter Last Filed Vital Signs Vital Sign Reading Time Taken Comments Blood Pressure 128/88 11/01/2024 9:21 AM EDT Pulse 90 11/01/2024 9:21 AM EDT Temperature - - Respiratory Rate 16 11/01/2024 9:21 AM EDT Oxygen Saturation 97% 11/01/2024 9:21 AM EDT Inhaled Oxygen Concentration - - Weight 86.2 kg (190 lb) 11/01/2024 9:21 AM EDT Height 165.1 cm (5' 5 ) 11/01/2024 9:21 AM EDT Body Mass Index 31.62 11/01/2024 9:21 AM EDT documented in this encounter Functional Status * Audit-C Score Answer Date of Assessment Author 1 11/01/2024 9:14 AM EDT Harman Doan LPN * Question Answer Date of Assessment Author Q1: How often do you have a drink containing alcohol? Monthly or less 11/01/2024 9:14 AM EDT Timothy Doan LPN Q2: How many drinks containing alcohol do you have on a typical day when you are drinking? 1 or 2 11/01/2024 9:14 AM EDRamona Woo LP N Q3: How often do you have six or more drinks on one occasion? Never 11/01/2024 9:14 AM EDRamona Woo LP N * Over the past 2 weeks, how often have you been bothered by any of the following problems? Question Answer Date of Assessment Author Little interest or pleasure in doing things Not at all 11/01/2024 9:09 AM Ramona Pennington LP N Feeling down, depressed, or hopeless Not at all 11/01/2024 9:09 AM Ramona Pennington LP N Patient Health Questionnaire -2 Score 0 11/01/2024 9:09 AM EDRamona Woo LP N documented as of this encounter Progress Notes * RAJEEV Reyna - 11/01/2024 9:00 AM EDT Images from the original note were not included. Subjective Patient ID: Catrachita Holley is a 59 y.o. female who presents for knee pain. Catrachita is present today for evaluation of knee pain. Admits it is her left knee and started bothering her 2 months ago. Pain is the whole knee (sides, front, back) feels like the muscle in the back of her knee does not want to hold her up . Describes pain as sharp, stabbing when walking and aching when sitting/laying. States it started as a crampy type pain. Rates pain sitting 1- 2/10, standing/walking 8/10. She has tried elevating it, Ibuprofen, ice. If she takes Ibuprofen regularly it canupset her stomach. No specific injury to her knee. Over the past 2 weeks, how often have you been bothered by any of the following problems? Little interest or pleasure in doing things: Not at all Feeling down, depressed, or hopeless: Not at all Patient Health Questionnaire-2 Score: 0 Current Outpatient Medications on File Prior to Visit Medication Sig Dispense Refill loratadine (Claritin) 10 MG tablet Take 10 mg by mouth Daily Potassium 99 MG tablet Take 1 tablet by mouth Daily Vitamin D-Vitamin K (K2-D3 5000 PO) Take 1 tablet by mouth Daily acetaminophen (Tylenol 8 Hour) 650 MG ER tablet Take 650 mg by mouth every 8 (eight) hours if needed for mild pain. Do not crush, chew, or split. aspirin 325 MG tablet Take 325 mg by mouth in the morning. No current facility-administered medications on file prior to visit. I have reviewed and reconciled the history and medication list with the patient today. Allergies Allergen Reactions Codeine Unknown Other Reaction(s): Abdominal pain Red Dye #40 (Allura Red) Other Reaction(s): Unknown Social History Tobacco Use Smoking status: Former Current packs/day: 0.00 Types: Cigarettes Quit date: 03/2022 Years since quittin.6 Smokeless tobacco: Never Vaping Use Vaping status: Every Day Substances: Nicotine Devices: Disposable Substance Use Topics Alcohol use: Yes Family History Problem Relation Name Age of Onset Cancer Father History reviewed. No pertinent past medical history. Past Surgical History: Procedure Laterality Date APPENDECTOMY COLONOSCOPY W/ POLYPECTOMY 06/24/2023 GALLBLADDER SURGERY ROTATOR CUFF REPAIR Right Dr anderson TONSILLECTOMY TUBAL LIGATION Visit Vitals BP 128/88 Pulse 90 Resp 16 Ht 5' 5 Wt 190 lb SpO2 97% BMI 31.62 kg/m?? Smoking Status Former BSA 1.99 m?? Review of Systems Constitutional: Negative for chills, fatigue and fever. Respiratory: Negative for cough, shortness of breath and wheezing. Cardiovascular: Negative for chest pain, palpitations and leg swelling. Gastrointestinal: Negative for abdominal pain, constipation, diarrhea, nausea and vomiting. Musculoskeletal: Positive for arthralgias, gait problem and joint swelling. Skin: Negative for rash. Objective Physical Exam Constitutional: General: She is not in acute distress. Appearance: She is well-developed. She is obese. HENT: Head: Normocephalic and atraumatic. Eyes: General: No scleral icterus. Conjunctiva/sclera: Conjunctivae normal. Cardiovascular: Rate and Rhythm: Normal rate and regular rhythm. Heart sounds: Normal heart sounds. No murmur heard. Pulmonary: Effort: Pulmonary effort is normal. No respiratory distress. Breath sounds: Normal breath sounds. No wheezing, rhonchi or rales. Musculoskeletal: Left knee: Effusion (Mild), bony tenderness (Around Patella) and crepitus (Mild) present. Normal range of motion. No LCL laxity, MCL laxity, ACL laxity or PCL laxity.Normal meniscus and normal patellar mobility. Instability Tests: Anterior drawer test negative. Posterior drawer test negative. Medial Laisha test negative and lateral Laisha test negative. Comments: Some pain with active ROM. Skin: General: Skin is warm and dry. Neurological: General: No focal deficit present. Mental Status: She is alert and oriented to person, place, and time. Psychiatric: Mood and Affect: Mood normal. Behavior: Behavior normal. Assessment/Plan Diagnoses and all orders for this visit: Acute pain of left knee - predniSONE (Deltasone) 10 MG tablet; Take 1 tablet (10 mg) by mouth 3 (three) times a day for 3 days, THEN 1 tablet (10 mg) 2 (two) times a day for 3 days, THEN 1 tablet (10 mg) Daily for 3 days. Can continue knee brace for next 1-2 weeks. Anti-inflammatory cream to knee twice a day. Prednisoneas prescribed. Take it with food. No NSAIDs while on steroid. Tylenol ok. If no improvement with the above, would plan on obtaining x-rays, consider knee injection. Pt voiced agreement and understanding. Encounter for screening mammogram for malignant neoplasm of breast - Bilateral screening mammogram with tomosynthesis; Future Provided patient with an order for an updated Mammogram. If results are negative/normal, will plan to continue with routine yearly screenings. Follow up for Wellness. documented in this encounter Plan of Treatment Upcoming Encounters Date Type Department Care Team (Late st Contact Info) Description 11/23/2024 9:00 AM EDT [facility] [address] [facility] 110 [place] [address] Eva Posey PA 112 [facility] 110 [place] [address] Scheduled Orders Name Type Priority Associated Diagnoses Orde r Schedule Bilateral screening mammogram with tomosynthesis Imaging Routine Encounter for screening mammogram for malignant neoplasm of breast Expected: 11/01/2024, Expires: 01/01/2026 documented as of this encounter Visit Diagnoses Diagnosis Acute pain of left knee- Primary Encounter for screening mammogram for malignant neoplasm of breast documented in this encounter Care Teams Fence Supervisor Relationship Specialty Start Date End Date Romario Coelho MD [address] [place] [id number] PCP - Lucinda Commercial 05/25/23 documented as of this encounter
--- NOTE | 2024-11-09 13:27 | MM_ITS ---
Patient Name: ILENE HUTCHISON MR#: [id number] : 1965 Exam Date: 11/09/2024 Ordering Doctor: DR PAYAL BOO RADIOLOGY REPORT PROCEDURE: MM TOMOSYNTHESIS SCREENING BI COMPARISON: MM TOMOSYNTHESIS SCREENING BI, 04/13/2023. MAMMO LT DX, 12/30/2011. MAMMO CLARA DX, 12/22/2011. MAMMO CLARA SCREEN, 12/19/2010. INDICATIONS: Screening Calculator Name NCI Breast Cancer Risk Assessment Tool 5 Year Breast Cancer Risk 0.90% Lifetime Breast Cancer Risk 5.70% Personal Breast Cancer No Personal Ovarian Cancer No Treatments None Family Cancers None LOCATION: [facility] BREAST COMPOSITION: The breasts are almost entirely fatty. FINDINGS: RIGHT BREAST: No significant suspicious finding. LEFT BREAST: No significant suspicious finding. DIAGNOSTIC CATEGORY 1--NEGATIVE. RECOMMENDATIONS: ROUTINE MAMMOGRAM AND CLINICAL EVALUATION IN 12 MONTHS. Dictated by: Tino Peters DO on 11/09/2024 at 15:07 Approved by: Tino Peters DO on 11/09/2024 at 15:09
--- OUTSIDE RECORDS SUMMARY | 2024-11-09 13:30 | XMS_ITS | Clinical Summary ---
Author Organization [id number] Address [id number] [address] [place] [address] Care Team Providers Care Offshore Diver Name Role Phone Romario Coelho MD Primary Care Provider [phone] Allergies Active Allergy Reactions Criticality Noted Date Comments Codeine 04/29/2018 Red Dye 04/29/2018 Medications sod sulf-pot chloride-mag sulf 1.479-0.188- 0.225 gram tabletIndicatio ns:Encounter for screening colonoscopy Please see instructional sheet given by physicians office. 24 tablet 4 Active Active Problems No known active problems Family History Medical History Relation Name Comments Colon cancer Father Colon cancer Maternal Grandmother Relation Name Status Comments Father Maternal Grandmother Social History Tobacco Use Types Packs/Day Years Used Date Smoking Tobacco: Former Cigarettes Q uit: 2021 Smokeless Tobacco: Never Alcohol Use Standard Drinks/Week Comments No 0 (1 standard drink = 0.6 oz pur e alcohol) AUDIT-C Answer Date Recorded Frequency of Alcohol Consumption Never 04/29/2018 Average Number of Drinks Not on file 019 Frequency of Binge Drinking Not on file 08/2018 Childcare Answer Date Recorded Childcare Unknown 08/04/2018 Employment Answer Date Recorded Employment Unknown 08/04/2018 Hunger Screening Answer Date Recorded Within the past 12 months we worried whether our food would run out before we got money to buy more. Never True 05/26/2023 Within the past 12 months th e food we bought just didn't last and we didn't have money to get more. Never True 05/26/2023 Purpose - Life Answer Date Recorded Purpose and direction in life Unknown Comments No Sex and Gender Information Value Date Recorded Sex Assigned at Not on file Legal Sex Female 11:21 AM EDT Gender Identity Not on file Sexual Orientation Not on file Last Filed Vital Signs Vital Sign Reading Time Taken Comments Blood Pressure 136/85 05/26/2023 10:27 AM EDT Pulse 88 04/29/2018 7:17 AM EST Temperature 36.6 C (97.8 F) 04/29/2018 7:17 AM EST Respiratory Rate 14 04/29/2018 7:17 AM EST Oxygen Saturation 96% 04/29/2018 7:17 AM EST Inhaled Oxygen Concentration - - Weight 88.7 kg (195 lb 9.6 oz) 05/26/2023 10:27 AM EDT Height 165.1 cm (5' 5 ) 05/26/2023 10:27 AM EDT Body Mass Index 32.55 05/26/2023 10:27 AM EDT Plan of Treatment Health Maintenance Due Date Last Done Comments Depression Screening 1979 DTaP,Tdap and Td Vaccines (1 - Tdap) 1986 Pap Smear 02/14/1988 Zoster (Shingles) Vaccine (1 of 2) 2017 Adult BMI Screening 05/25/2024 05/26/2023 Tobacco Screening 05/25/2024 05/26/2023 COVID-19 Vaccine (2024-2 6 season) 2024 2021, 06/01/2020, 05/04/2020 Influenza Vaccine 10/24/2024 01/12/2023 Colonoscopy 06/23/2028 06/24/2023 Medical Devices Not on file Procedures Procedure Name Priority Date/Time Associated Diagnosis Comments COLONOSCOPY Routine 06/24/2023 Encounter for screening colonoscopy from Last 3 Months or Most Recently Relevant to Health Maintenance Results * Colonoscopy (06/24/2023) us Shannon Newman SECOND BALLER-HEARING AID SPECIALIST GI PROCEDURE ORDERABL ES Final Result MANUALLY TRANSCRIBED RESULTS from Last 3 Months or Most Recently Relevant to Health Maintenance Insurance [employer] [address] [place] [address] Care Teams Offshore Diver Relationship Specialty Start Date End Date Romario Coelho MD 112 [facility] [address] [place] [phone] PCP - General Internal Medicine 04/06/23
--- OUTSIDE RECORDS SUMMARY | 2024-11-09 13:30 | XMS_ITS | Encounter Summary ---
Author Organization [facility] Address [address] [place] [address] Care Team Providers Care Bead Supervisor Name Role Phone Unallocated, Noms Provider Primary Care Jocei matthew Romario Coelho MD Unavailable [phone] Encounter Details Date Type Department Care Team (Late st Contact Info) Description 04/01/2023 [facility] [address] [place] [address] [place] [id number] A, Unknown Practice [address] [place] [address] Social History Tobacco Use Types Packs/Day Years Used Date Smoking Tobacco: Former Cigarettes Q uit: 03/2022 Smokeless Tobacco: Never Humiliation, Afraid, Rape, and Kick questionnair e [...] How often do you attend chur or rastafarian services? Patient declined 04/01/2023 Do you belong to any clubs o r organizations such as evangelical groups, unions, fraternal or athletic groups, or school groups? No 04/01/2023 How often do you attend meet ings of the clubs or organizations you belong to? Patient declined 04/01/2023 Are you , , di vorced, , never , or living with a partner? 04/01/2023 AUDIT-C Answer Date Recorded Q1: How often do you have a drink containing alcohol? Never 04/01/2023 Q2: How many drinks containi ng alcohol do you have on a typical day when you are drinking? Patient does not drink Q3: How often do you have si x or more drinks on one occasion? Never 04/01/2023 Overall Financial Resource Strain (CARDIA) Answe r Date Recorded How hard is it for you to pa y for the very basics like food, housing, medical care, and heating? Not hard at all 04/01/2023 [facility] [place] [facility] - Occupational Stress Questionnaire Answer Date Recorded [...] on file documented as of this encounter Functional Status * Audit-C Score Answer Date of Assessment Author 0 04/01/2023 4:43 PM EST Mychart, Generic * Q1: How often do you have a drink containing alcohol? Answer Date of Assessment Author Never 04/01/2023 4:43 PM EST Mychart, Generic * Q2: How many drinks containing alcohol do you have on a typical day when you are drinking? Answer Date of Assessment Author Patient does not drink 04/01/2023 4:43 PM EST My chart, Generic * Q3: How often do you have six or more drinks on one occasion? Answer Date of Assessment Author Never 04/01/2023 4:43 PM EST Mychart, Generic documented as of this encounter Plan of Treatment Upcoming Encounters Date Type Department Care Team (Late st Contact Info) Description 11/23/2024 9:00 AM EDT Office Visit [facility] [place] [facility] [address] [facility] [address] [place] [address] Eva Posey PA [address] [place] [address] [place] [address] documented as of this encounter Procedures Procedure Name Priority Date/Time Associated Diagnosis Comments ELECTROCARDIOGRAM REPORT Routine 024 8:13 AM EST documented in this encounter Results * Electrocardiogram Report (03/26/2023 8:13 AM EST) us Unknown Practice A IN CLINIC/BEDSIDE ORDERABLES Final Result documented in this encounter Visit Diagnoses Not on filedocumented in this encounter Care Teams Bead Supervisor Relationship Specialty Start Date End Date Unallocated, [facility] [place], [address] [place] [address] PCP - General 10/28/22 10/31/24 Romario Coelho MD [address] [facility] 110 [place] [address] PCP - Lucinda Commercial 05/25/23 documented as of this encounter
--- OUTSIDE RECORDS SUMMARY | 2024-11-09 13:30 | XMS_ITS | Encounter Summary ---
Author Organization [facility] Address [address] [place] [address] Care Team Providers Care Orchid Superintendent Name Role Phone Unallocated, Nomamber Provider Primary Care Provi matthew Romario Coelho MD Unavailable [phone] Encounter Details Date Type Department Care Team (Late st Contact Info) Description 10/05/2023 Abstract V[facility]CTOR [facility]acio [facility] [address] [place] [address] Unallocated, Noms Provider, [address] [place], [place] [id number] Social History Tobacco Use Types Packs/Day Years [...] 04/01/2023 How often do you attend chur ch or muslim services? Patient declined 04/01/2023 Do you belong to any clubs o r organizations such as congregational groups, unions, fraternal or athletic groups, or [...] and heating? Not hard at all 04/01/2023 [facility] Occupat ional [facility] - Occupational Stress [...] place to sleep or slept in a prison (including now)? No 04/01/2023 Comments Unknown Sex and Gender Information Value Date Recorded Sex Assigned at Female 10/28/2022 11:28 AM EDT Legal Sex Female 8:25 PM EDT Gender Identity Female 10/28/2022 11:28 AM EDT Sexual Orientation Not on file documented as of this encounter Plan of Treatment Upcoming Encounters Date Type Department Care Team (Late st Contact Info) Description 11/23/2024 9:00 AM EDT Office Visit VÍCTOR Bailey [address] [facility] [address] [place] [address] Eva Posey PA [address] [facility] 110 [place] [address] documented as of this encounter Visit Diagnoses Not on filedocumented in this encounter Care Teams Orchid Superintendent Relationship Specialty Start Date End Date Unallocated, Víctor Edgar MD [address] [place] [address] PCP - General 10/28/22 10/31/24 Romario Coelho MD [address] [place] [address] PCP - [place] Commercial 05/25/23 documented as of this encounter
--- OUTSIDE RECORDS SUMMARY | 2024-11-09 13:30 | XMS_ITS | Encounter Summary ---
Author Organization [facility] Address [address] [place] [address] Care Team Providers Care Print Shop Stenographer Name Role Phone Unallocated, Noms Provider Primary Care Provi matthew Romario Coelho MD Unavailable [phone] Encounter Details Date Type Department Care Team (Late st Contact Info) Description 04/15/2023 Clinisync Result Encounter [facility] External Department Unsolicited Romario Coelho MD [address] [facility] [address] [place] [address] Social History Tobacco Use Types Packs/Day Years [...] often do you attend chur ch or mormon services? Patient declined 04/01/2023 Do you belong to any clubs o r organizations such as restoration groups, unions, fraternal or athletic groups, or [...] and heating? Not hard at all 04/01/2023 [facility] Occupat ional Health - Occupational [...] 11/23/2024 9:00 AM EDT Office Visit [facility] [address] [facility] 110 [place] [address] Eva Posey PA 112 [facility] 110 [place] [address] documented as of this encounter Procedures Procedure Name Priority Date/Time Associated Diagnosis Comments MM TOMOSYNTHESIS SCREENING BI 04/15/2023 3:35 PM EST documented in this encounter Results * MM TOMOSYNTHESIS SCREENING BI (04/15/2023 3:35 PM EST) Anatomical Region Laterality Modality Other 04/15/2023 3:35 PM EST Narrative 04/15/2023 3:37 PM EST The [address] [address] Mammography Report Signed Patient: Ilene Hutchison MR#: [id number] : 1965 Acct:[id number] Age/Sex: 58 / F ADM Date: 04/13/23 Loc: MAMMO Attending Dr: ROMARIO COELHO Ordering Physician: ROMARIO COELHO Results: Date of Service: 04/13/23 Follow Up: Procedure(s): MM tomosynthesis screening BI Accession Number(s): [id number] cc: ROMARIO COELHO Patient Name: ILENE HUTCHISON MR#: [id number] : 1965 Exam Date: 04/13/2023 Ordering Doctor: DR ROMARIO COELHO M.D. RADIOLOGY REPORT PROCEDURE: MM TOMOSYNTHESIS SCREENING BI COMPARISON: MAMMO LT DX, 12/30/2011. MAMMO CLARA DX, 12/22/2011. MAMMO CLARA SCREEN, 12/19/2010. INDICATIONS: Screening Calculator Name NCI Breast Cancer Risk Assessment Tool 5 Year Breast Cancer Risk 0.90% Lifetime Breast Cancer Risk 5.90% Personal Breast Cancer No Personal Ovarian Cancer No Treatments None Family Cancers None LOCATION: The [facility] BREAST COMPOSITION: Almost entirely fatty. FINDINGS: DIAGNOSTIC CATEGORY 2--BENIGN FINDING: RIGHT BREAST: No significant suspicious finding. Scattered benign-appearing calcifications are present. LEFT BREAST: No significant suspicious finding. Scattered benign-appearing calcifications are present. RECOMMENDATIONS: ROUTINE MAMMOGRAM AND CLINICAL EVALUATION IN 12 MONTHS. PLEASE NOTE: A NORMAL MAMMOGRAM DOES NOT EXCLUDE THE POSSIBILITY OF BREAST CANCER. A CLINICALLY SUSPICIOUS PALPABLE LUMP SHOULD BE BIOPSIED. Dictated by: Alec Patrick M.D. on 04/15/2023 at 15:31 Approved by: Alec Patrick M.D. on 04/15/2023 at 15:35 Dictated By: Alec Patrick M.D. Signed By: 04/15/23 1537 DD/ 1535 TD/TT: Kindergarten Instructional Assistant: Procedure Note Radiology, Radiologist, MD - 04/15/2023 [place] [address] Mammography Report Signed Patient: Ilene Hutchison SMR#: [id number] : 1965Acct:[id number] Age/Sex: 58 / FADM Date: 04/13/23 Loc: MAMMO Attending Dr: ROMARIO COELHO Ordering Physician: ROMARIO COELHOResults: Date of Service: 04/13/23Follow Up: Procedure(s): MM tomosynthesis screening BI Accession Number(s): [id number] cc: JTROMARIO Patient Name: ILENE HUTCHISON MR#: [id number] : 1965 Exam Date: 04/13/2023 Ordering Doctor: DR ROMARIO COELHO M.D. RADIOLOGY REPORT PROCEDURE: MM TOMOSYNTHESIS SCREENING BI COMPARISON: MAMMO LT DX, 12/30/2011. MAMMO CLARA DX, 12/22/2011. MAMMOBIL SCREEN, 12/19/2010. INDICATIONS: Screening Calculator Name NCI Breast Cancer Risk Assessment Tool 5 Year Breast Cancer Risk 0.90% Lifetime Breast Cancer Risk 5.90% Personal Breast Cancer No Personal Ovarian Cancer No Treatments None Family Cancers None LOCATION: [facility] BREAST COMPOSITION: Almost entirely fatty. FINDINGS: DIAGNOSTIC CATEGORY 2--BENIGN FINDING: RIGHT BREAST: No significant suspicious finding. Scatteredbenign-appearing calcifications are present. LEFT BREAST: No significant suspicious finding. Scatteredbenign-appearing calcifications are present. RECOMMENDATIONS: ROUTINE MAMMOGRAM AND CLINICAL EVALUATION IN 12 MONTHS. PLEASE NOTE: A NORMAL MAMMOGRAM DOES NOT EXCLUDE THE POSSIBILITY OFBREAST CANCER. A CLINICALLY SUSPICIOUS PALPABLE LUMP SHOULD BE BIOPSIED. Dictated by: Alec Patrick M.D. on 04/15/2023 at 15:31 Approved by: Alec Patrick M.D. on 04/15/2023 at 15:35 Dictated By: Alec Patrick M.D. Signed By:04/15/23 1537 DD/ 1535 TD/TT: Kindergarten Instructional Assistant: Romario Coelho MD [facility] Final Result documented in this encounter Visit Diagnoses Not on filedocumented in this encounter Care Teams Print Shop Stenographer Relationship Specialty Start Date End Date Unallocated, Noms ProviderMD [address] [place] [address] PCP - General 10/28/22 10/31/24 Romario Coelho MD [address] [address] PCP - Luc[place] [employer] 05/25/23 documented as of this encounter
--- OUTSIDE RECORDS SUMMARY | 2024-11-09 13:30 | XMS_ITS | Encounter Summary ---
Author Organization [facility] Address [address] [place] [address] Care Team Providers Care Refrigeration Engineer Name Role Phone Unallocated, Nomamber Provider Primary Care Provi matthew Romario Coelho MD Unavailable [phone] Encounter Details Date Type Department Care Team (Late st Contact Info) Description 05/26/2023 Abstract VÍCTOR Palacio [facility] [address] [place] [address] Unallocated, Noms Provider, [address] [place], [place] [address] Social History Tobacco Use Types Packs/Day Years [...] often do you attend chur ch or adventist services? Patient declined 04/01/2023 Do you belong to any clubs o r organizations such as hindu groups, unions, fraternal or athletic groups, or [...] and heating? Not hard at all 04/01/2023 [facility] of Occupat ional Health - Occupational [...] Office Visit VÍCTOR Bailey [address] [facility] 110 [place] [address] Eva Posey PA [address] [facility] 110 [place] [address] documented as of this encounter Visit Diagnoses Not on filedocumented in this encounter Care Teams Refrigeration Engineer Relationship Specialty Start Date End Date Unallocated, Víctor Edgar MD [address] [place] [address] PCP - General 10/28/22 10/31/24 Romario Coelho MD [address] [place] [address] PCP - [place] [employer] 05/25/23 documented as of this encounter
--- OUTSIDE RECORDS SUMMARY | 2024-11-09 13:31 | XMS_ITS | Clinical Summary ---
Author Organization [facility] Address [address] [facility] [place] [address] Care Team Providers Care Straight Ruling Machine Operator Name Role Phone Romario Coelho MD Unavailable [phone] Allergies Active Allergy Reactions Criticality Noted Date Comments Codeine Unknown Medium 04/29/2018 Other Reaction(s): Abdominal pain Red Dye #40 (Allura Red) 10/28/2022 Other Reaction(s): Unknown Medications acetaminophen (Tylenol 8 Hour) 650 MG ER tablet Take 650 mg by mouth every 8 (eight) hours if needed for mild pain. Do not crush, chew, or split. Active aspirin 325 MG tablet Take 325 mg by mouth in the morning. Active loratadine (Claritin) 10 MG tablet Take 10 mg by mouth Daily Active Vitamin D-Vitamin K (K2-D3 5000 PO) Take 1 tablet by mouth Daily Active Potassium 99 MG tablet Take 1 tablet by mouth Daily Active predniSONE (Deltasone) 10 MG tabletIndication s:Acute pain of left knee Take 1 tablet (10 mg) by mouth 3 (three) times a day for 3 days, THEN 1 tablet (10 mg) 2 (two) times a day for 3 days, THEN 1 tablet (10 mg) Daily for 3 days. 18 tablet 11/01/2024 Active Active Problems Problem Noted Date Diagnosed Date LFT elevation 04/06/2023 Elevated BP without diagnosis of hypertension Chest discomfort 03/26/2023 History of cigarette smoking 03/26/2023 Difficulty in walking, not elsewhere classified 03/24/2023 Encounters Date Type Department Care Team Description 11/01/2024 9:00 AM EDT [facility] [address] [place] [address] Eva Posey PA Acute pain of left knee (Primary Dx); Encounter for screening mammogram for malignant neoplasm of breast 11/01/2024 Bamboo flowsheet [facility] [address] [place] [address] Eva Posey PA 11/01/2024 Travel from Last 3 Months Immunizations Immunization Administration Dates Next Due Influenza, injectable, quadrivalent, preservativ e free 01/12/2023 Family History Medical History Relation Name Comments Cancer Father Relation Name Status Comments Father Mother Alive Social History Tobacco Use Types Packs/Day Years [...] week 04/01/2023 How often do you attend [facility] or mu-ism services? Patient declined 04/01/2023 Do you belong to any clubs o r organizations such as jainism groups, unions, fraternal or athletic groups, or [...] Recorded Patient Health Questionnaire-2 Score 0 11/01/2024 [facility] of Occupat ional [facility] - Occupational Stress Questionnaire Answer Date [...] place to sleep or slept in a senior living (including now)? No 04/01/2023 Comments Unknown Sex and Gender Information Value Date Recorded Sex Assigned at Female 10/28/2022 11:28 AM EDT Legal Sex Female 8:25 PM EDT Gender Identity Female 10/28/2022 11:28 AM EDT Sexual Orientation Not on file Last Filed [...] Mass Index 31.62 11/01/2024 9:21 AM EDT Plan of Treatment Upcoming Encounters Date Type Department Care Team (Late st Contact Info) Description 11/23/2024 9:00 AM EDT Office Visit [facility] 112 [facility] 110 [place] [address] Eva Posey PA 112 [facility] 110 [place] [address] Health Maintenance Due Date Last Done Comments CT Colonography 1965 FIT-DNA 1965 FIT 1965 FOBT 1965 Sigmoidoscopy 1965 Pap Smear 02/14/1988 Cervical Cancer Screening 1997 HPV/Cotest 1997 Mammogram 04/15/2024 04/15/2023 Influenza Vaccine (#1) 2025 01/12/2023 Postp oned from 10/24/2024 (Patient Refused) Colonoscopy 06/23/2033 06/24/2023 Colorectal Cancer Screening 06/23/2033 Procedures Procedure Name Priority Date/Time Associated Diagnosis Comments COLONOSCOPY DIAGNOSTIC Routine 06/24/2023 MM TOMOSYNTHESIS SCREENING BI 04/15/2023 3:35 PM EST from Last 3 Months or Most Recently Relevant to Health Maintenance Results * COLONOSCOPY DIAGNOSTIC (06/24/2023) Anatomical Region Laterality Modality Radiographic Lesia ging 06/24/2023 Narrative 06/24/2023 9:51 AM EDT Sessile polyp-repeat in 5 years due to family history Romario Coelho MD IMG XR PROCEDURES Final Result * MM TOMOSYNTHESIS SCREENING BI (04/15/2023 3:35 PM EST) Anatomical Region Laterality Modality Other 04/15/2023 3:35 PM EST Narrative 04/15/2023 3:37 [place] [address] Mammography Report Signed Patient: Ilene Hutchison MR#: [id number] : 1965 Acct:[id number] Age/Sex: 58 / F ADM Date: 04/13/23 Loc: MAMMO Attending Dr: ROMARIO COELHO Ordering Physician: ROMARIO COELHO Results: Date of Service: 04/13/23 Follow Up: Procedure(s): MM tomosynthesis screening BI Accession Number(s): [id number] cc: ROMARIO COELHO Patient Name: ILENE HUTCHISON MR#: [id number] : 1965 Exam Date: 04/13/2023 Ordering Doctor: [...] Treatments None Family Cancers None LOCATION: The [facility] BREAST COMPOSITION: Almost entirely fatty. FINDINGS: [...] Signed By: 04/15/23 1537 DD/ 1535 TD/TT: Medication Aid: Procedure Note Radiology, Radiologist, MD - 04/15/2023 [place] [address] Mammography Report Signed Patient: Ilene Hutchison SMR#: [id number] : 1965Acct:[id number] Age/Sex: 58 / FADM Date: 04/13/23 Loc: MAMMO Attending Dr: ROMARIO COELHO Ordering Physician: ROMARIO COELHOResults: Date of Service: 04/13/23Follow Up: Procedure(s): MM tomosynthesis screening BI Accession Number(s): [id number] cc: ROMARIO COELHO Patient Name: ILENE HUTCHISON MR#: [id number] : 1965 Exam Date: 04/13/2023 Ordering Doctor: [...] Treatments None Family Cancers None LOCATION: The [facility] BREAST COMPOSITION: Almost entirely fatty. FINDINGS: [...] M.D. Signed By:04/15/23 1537 DD/ 1535 TD/TT: Medication Aid: Romario Coelho MD [facility] Final Result from Last 3 Months or Most Recently Relevant to Health Maintenance Insurance [employer] Care Teams Straight Ruling Machine Operator Relationship Specialty Start Date End Date Romario Coelho MD [address] [facility] [address] [place] [address] PCP - [place] [employer] 05/25/23
--- OUTSIDE RECORDS SUMMARY | 2024-11-09 13:31 | XMS_ITS | Encounter Summary ---
Author Organization [facility] Address [address] [facility] [place] [address] Care Team Providers Care Eeo Officer Name Role Phone Romario Coelho MD Unavailable [phone] Encounter Details Date Type Department Care Team (Late st Contact Info) Description 11/01/2024 Bamboo flowsheet [facility] 112 [facility] 110 [place] [phone] Eva Posey PA [address] [facility] 110 [place] [address] Social History Tobacco Use Types Packs/Day Years Used Date Smoking Tobacco: Former Cigarettes Q uit: 03/2022 Smokeless Tobacco: Never Alcohol Use Standard Drinks/Week Comments Yes 0 [...] often do you attend chur ch or jain services? Patient declined 04/01/2023 Do you belong to any clubs o r organizations such as protestant groups, unions, fraternal or athletic groups, or [...] Recorded Patient Health Questionnaire-2 Score 0 11/01/2024 [facility] of Occupat ional Health - Occupational Stress [...] place to sleep or slept in a group home (including now)? No 04/01/2023 Comments Unknown Sex [...] Visit [facility] [place] Bailey [address] [facility] [address] [place] [address] Eva Posey PA [address] [facility] 110 [place] [address] documented as of this encounter Visit Diagnoses Not on filedocumented in this encounter Care Teams Eeo Officer Relationship Specialty Start Date End Date Romario Coelho MD [address] [place] [address] PCP - Lucinda Oliva 05/25/23 documented as of this encounter
--- OUTSIDE RECORDS SUMMARY | 2024-11-09 13:31 | XMS_ITS | Encounter Summary ---
Author Organization [facility] Address [address] [place] [address] Care Team Providers Care Manager Internship Name Role Phone Romario Coelho MD Unavailable [phone] Encounter Details Date Type Department Care Team (Latest Contact Info) Description 11/01/2024 Travel Social History Tobacco Use Types Packs/Day Years [...] week 04/01/2023 [facility] or mandaeism services? Patient declined 04/01/2023 Do you belong to any clubs o r organizations such as latter-day groups, unions, fraternal or athletic groups, or [...] Recorded Patient Health Questionnaire-2 Score 0 11/01/2024 [facility] of Occupat ional Health - [...] place to sleep or slept in a detention (including now)? No 04/01/2023 Comments Unknown Sex [...] drinking? 1 or 2 11/01/2024 9:14 AM EDT Ramona Doan LP N Q3: How often do you have six or more drinks on one occasion? Never 11/01/2024 9:14 AM EDT Ramona Doan LP N * Over the past 2 weeks, how often have you been bothered by any of the following problems? Question Answer Date of Assessment Author Little interest or pleasure in doing things Not at all 11/01/2024 9:09 AM EDT Ramona Doan LP N Feeling down, depressed, or hopeless Not at all 11/01/2024 9:09 AM IRVINGT Ramona Doan LP N Patient Health Questionnaire -2 Score 0 11/01/2024 9:09 AM EDT Ramona Doan LP N documented as of this encounter Plan of Treatment Upcoming Encounters Date Type Department Care Team (Late st Contact Info) Description 11/23/2024 9:00 AM EDT Office Visit [facility] [place] Bailey [address] [facility] [address] [place] [address] Eva Posey PA [address] [facility] 110 [place] [address] documented as of this encounter Visit Diagnoses Not on filedocumented in this encounter Care Teams Manager Internship Relationship Specialty Start Date End Date Romario Coelho MD [address] [facility] [address] [place] [address] PCP - Lucinda [employer] 05/25/23 documented as of this encounter
--- OUTSIDE RECORDS SUMMARY | 2024-11-09 13:57 | XMS_ITS | CCD ---
Author Organization [facility] Care Team Providers Care Afloat Cryptologic Manager Name Role Phone DR CHAYA KAMARA Admitting Unavailable ASAD, DR LARKIN Attending Unavailable HOUSE, DR HUDSON Primary Care Unavailable WEST, DR PIERRE Malcolm Consulting Unavailable ASAD, DR LARKIN Consulting Unavailable Ruben Llanes Attending Unavailable Ruben Llanes Admitting Unavailable Provider, None Primary Care Unavailable Myra Borges Unavailable Unallocated, N[place] Provider Primary Care Provider BRANDO MEDLEY Attending Unavailable ROMARIO COELHO Referring Unavailable ROMARIO COELHO Primary Care Unavailable NO FAMILY, PHYSICIAN Primary Care Provider Unava ilable Rosa Perez APRN Attending Provider NO FAMILY, PHYSICIAN Primary Care Unavailable Rosa Perez Attending Unavailable Rosa Perez Admitting Unavailable Romario Coelho MD Primary Care Provider [phone] Romario Coelho MD Unavailable EVA JOHANSEN Attending Unavailable Allergies Allergy Classification Reported Allergen(s) Allergy Type Date of Onset Reaction(s) Facility Contrast Media (1 source) Contrast media Substance Allergy 1 [facility] Rep[facility] Opioid Agonists (1 source) Codeine Drug Allergy 1 [facility] Repository (14 sources) Codeine; Translations: [codeine] Drug Allergy 9 Unknown [facility] Repository (12 sources) Contrast media; Translations: [Red Dye] Propensity to adverse reactions to food (disorder) 9 Unknown, Hives [facility] Repository (1 source) Codeine Drug Allergy stomach upset [employer] Other (3 sources) Red Dye #40 (Allura Red) Allergy to substance 3 [facility] Healthcare Medications Current Medications Medication Drug Class(es) Dates Sig (Normalized) Sig (Original) 8 hr acetaminophen 650 mg extended release oral tablet (7 sources) take 1 tablet by mouth every eight hours as needed for pain acetaminophen (Tylenol 8 Hour) 650 MG ER tablet Take 650 mg by mouth every 8 (eight) hours if needed for mild pain. Do not crush, chew, or split. Active Albuterol Sulfate 90 mcg/actuation HFA aerosol inhaler (2 sources) Start: 4 Albuterol Sulfate 90 mcg/actuation HFA aerosol inhaler Active 2 INH INHALATION EVERY 4-6 HOURS as needed for shortness of breath or wheezing 6.7 14 January 04, 2024 12:00am amoxicillin 875 mg / clavulanate 125 mg oral tablet (2 sources) Penicillin-class Antibacterial Start: 4 take 1 tablet by mouth twice daily Amoxicillin-Pot Clavulanate 875-125 mg tablet Active 1 TAB PO Twice daily 14 7 January 04, 2024 12:00am aspirin 325 mg oral tablet (5 sources) Platelet Aggregation Inhibitor, Nonsteroidal Anti-inflammatory Drug take 1 tablet by mouth in the morning aspirin 325 MG tablet Take 325 mg by mouth in the morning. Active Calcium (1 source) Phosphate Binder, Calcium Calcium Active loratadine 10 mg oral tablet (2 sources) take 1 tablet by mouth once daily loratadine (Claritin) 10 MG tablet Take 10 mg by mouth Daily Active methylPREDNISolone 4 mg oral tablet (4 sources) Corticosteroid Start: 4 take 1 tablet by mouth once Methylprednisolone (Medrol (Geoff)) 4 mg tablets,dose pack Active 0 PO per package directions January 04, 2024 12:00am PO PER PKG DIR Start: 12-04-2022 methylPREDNISo lone 4 MG as directed Orally for daily dose take half with breakfast, half with dinner for 6 days Nov, Active methylPREDNISolo ne Not-Taking Multivitamin preparation (1 source) Multivitamin Act estephania Multivitamin tablet (2 sources) Start: 01-04-2024 take 1 tablet by mouth once daily Multivitamin tablet Active 1 TAB PO Daily January 04, 2024 12:00am potassium 99 mg extended release oral tablet (2 sources) take 1 tablet by mouth once daily Potassium 99 MG tablet Take 1 tablet by mouth Daily Active predniSONE 10 mg oral tablet (3 sources) Start: 11-01-2024 End: 11-10-2024 take 1 tablet by mouth three times daily, then take 1 tablet by mouth twice daily, then take 1 tablet by mouth once daily predniSONE (Deltasone) 10 MG tablet Indications: Acute pain of left knee Take 1 tablet (10 mg) by mouth 3 (three) times a day for 3 days, THEN 1 tablet (10 mg) 2 (two) times a day for 3 days, THEN 1 tablet (10 mg) Daily for 3 days. 18 tablet 11/01/2024 11/10/2024 Active Start: 11-24-2014 take 1 tablet by juan th every twelve hours predniSONE 10 mg 1 tablet with food or milk Orally Twice a day for 5 day(s) Nov, Not-Taking sod sulf-pot chloride-mag chen lf 1.479-0.188- 0.225 gram tablet (2 sources) Start: 05-26-2023 sod sulf-pot c hloride-mag sulf 1.479-0.188- 0.225 gram tablet Indications: Encounter for screening colonoscopy Please see instructional sheet given by physicians office. 24 tablet 05/26/2023 Active Start: 05-26-2023 sod sulf-pot c hloride-mag sulf 1.479-0.188- 0.225 gram tablet Indications: Encounter for screening colonoscopy Please see instructional sheet given by physicians office. 24 tablet 0 05/26/2023 Active vitamin B12 (1 source) Vitamin B12 Vitamin B 12 Act estephania Vitamin D-Vitamin K (K2-D3 5 000 PO) (2 sources) Vitamin D-Vitami n K (K2-D3 5000 PO) Take 1 tablet by mouth Daily Active Vitamin E (1 source) Vitamin E Active [...] this time. 0 05/26/2023 Discontinued (Therapy completed) Problems Active Problems Problem Classification Problem Date Documented Da te Episodic/Chronic Acute bronchitis (3 sources) Acute bronchitis; Translations: [Acute bronchitis, unspecified] 01-04-2024 Episodic Chronic obstructive pulmonary disease and bronchiectasis (3 sources) Bronchitis; Translations: [Bronchitis, not specified as acute or chronic] 01-04-2024 Episodic Disorders of lipid metabolism (2 sources) Mixed hyperlipidemia; Translations: [Mixed hyperlipidemia] 04-06-2023 Chronic E Codes: Struck by; against (1 source) Other cause of strike by thrown, projected or falling object, initial encounter; Translations: [OTH CAUSE STRIK THRWN/FALL OBJ INIT] Onset: 08-06-2020 Episodic Immunizations and screening for infectious disease (2 sources) Contact with or exposure to other viral diseases; Translations: [Contact with or suspected exposure to severe acute respiratory syndrome coronavirus 2 (SARS-CoV-2)] 01-04-2024 Episodic Other injuries and conditions due to external causes (3 sources) Unspecified injury of right foot, initial encounter; Translations: [UNSPECIFIED INJURY RT FOOT INITIAL] Onset: 08-02-2020 Episodic Other lower respiratory disease (2 sources) Dyspnea; Translations: [Shortness of breath] 01-04-2024 Episodic Other lower respiratory disease (1 source) Shortness of breath; Translations: [Shortness of breath] Onset: 01-04-2024 Episodic Other nervous system disorders (7 sources) Difficulty walking; Translations: [Difficulty in walking, not elsewhere classified] Onset: 03-24-2023 03-24-2023 Chronic Other non-traumatic joint disorders (2 sources) Pain in left knee; Translations: [Pain in joint, lower leg] 11-01-2024 Episodic Other screening for suspected conditions (not mental disorders or infectious disease) (14 sources) Patient encounter status; Translations: [Encounter for other screening for malignant neoplasm of breast] Onset: 04-06-2023 04-06-2023 Episodic Other upper respiratory infections (1 source) Acute sinusitis, unspecified Episodic Residual codes; unclassified (1 source) Family history of malignant neoplasm of digestive organs; Translations: [Family history of malignant neoplasm of digestive organs] Onset: 05-26-2023 Episodic Substance-related disorders (1 source) Nicotine dependence, cigarettes, uncomplicated; Translations: [NICOTINE DEPEND CIGARETTES UNCOMP] Onset: 08-06-2020 Chronic Superficial injury; contusion (1 source) Contusion of right foot, initial encounter; Translations: [CONTUSION RIGHT FOOT INITIAL ENC] Onset: 08-06-2020 Episodic Unclassified (1 source) Colon Cancer Screening Onset: 05-26-2023 Viral infection (1 source) Other viral agents as the cause of diseases classified elsewhere Episodic Past or Other Problems Problem Classification Problem Date Documented Da te Episodic/Chronic Nonspecific chest pain (10 sources) Chest discomfort; Translations: [Other chest pain] Onset: 03-26-2023 03-26-2023 Episodic Other circulatory disease (10 sources) Elevated blood-pressure reading without diagnosis of hypertension; Translations: [Elevated blood-pressure reading, without diagnosis of hypertension] Onset: 03-26-2023 03-26-2023 Episodic Residual codes; unclassified (1 source) Family history of cancer of colon; Translations: [Family history of malignant neoplasm of digestive organs] 05-26-2023 Episodic Screening and history of mental health and substance abuse codes (8 sources) Tobacco smoking behavior - finding; Translations: [Personal history of nicotine dependence] Onset: 03-26-2023 03-26-2023 Episodic Results Test Name Value Interpretation Reference Range Facility Influenza virus B Ag [Presen ce] in Upper respiratory specimen by Rapid immunoassayon 01-04-2024 FLUBV Ag IA.rapid Ql (Nph) Influenza virus B Ag [Presence] in Upper respiratory specimen by Rapid immunoassay [facility] No Panel Informationon 01-03 Influenza Type A (Rapid) Negative [facility] POC SARS CoV-2 Antigen Negative [facility] X-ray reportOrdered By: Frederic Jackson on 01-04-2024 Study report [facility] [place] [address] XRay Report Signed Patient: Catrachita Hutchison MR#: [id number] : 1965 Acct:[id number] Age/Sex: 58 / F ADM Date: 4 Loc: XDUCLY Room: Type: [facility] Attending Dr: Rosa Perez KARATE TEACHER Copies to: Rosa Perez APRN~ Ordering Provider: Rosa Perez APRN Date of Service: 01/04/24 XR/XR chest 2V*: R06.02 - Shortness of breath XR chest 2V* 01/04/2024 12:59 PM SIGNS AND SYMPTOMS: Nonproductive cough, chest congestion, wheezing, shortness of breath PROTOCOL: Frontal and lateral radiograph of the chest COMPARISON: 11/24/2014 FINDINGS: The trachea is midline. The heart and mediastinal structures are within normal limits. The lung parenchyma is clear. The bony thorax is intact. Degenerativechanges are noted in the thoracic spine. XR/XR chest 2V* IMPRESSION: No acute cardiopulmonary pathology. Impression dictated by: Frederic Jackson M.D.01/04/2024 1:23 PM Dictation Location: [place] [address] Transcribed By: [facility] 01/04/24 1323 Dictated By: Frederic Jackson II, MD 01/04/24 1322 Signed By: 01/04/24 1323 [facility] Work Phone: XR chest 2V*on 01-04-2024 XR chest 2V* [facility] Main [place] [address] [place], [place] [id number] XRay Report Signed Patient: Catrachita Hutchison MR#: [id number] : 1965 Acct:[id number] Age/Sex: 58 / F ADM Date: 01/04/24 Loc: [facility] Room: Type: [facility] Attending Dr: Rosa Perez APRN Copies to: Rosa Perez APRN Ordering Provider: oRsa Perez APRN Date of Service: 01/04/24 XR/XR chest 2V*: R06.02 - Shortness of breath XR chest 2V* 01/04/2024 12:59 PM SIGNS AND SYMPTOMS: Nonproductive cough, chest congestion, wheezing, shortness of breath PROTOCOL: Frontal and lateral radiograph of the chest COMPARISON: 11/24/2014 FINDINGS: The trachea is midline. The heart and mediastinal structures are within normal limits. The lung parenchyma is clear. The bony thorax is intact. Degenerative changes are noted in the thoracic spine. XR/XR chest 2V* IMPRESSION: No acute cardiopulmonary pathology. Impression dictated by: Frederic Jackson M.D.01/04/2024 1:23 PM Dictation Location: [place] [address] Transcribed By: LORE 01/04/24 1323 Dictated By: Frederic Jackson II, MD 01/04/24 1322 Signed By: 01/04/24 1323 Normal [facility] Colonoscopyon 06-24-2023 [facility] HCG, Quantitative, on 06-24-2023 Hcg-beta, serum 8 [facility] Coding Summaryon 11-04-2022 Coding Summary HTMLBase 64 XkfxfgaqAJh2sSf+PGhlYWQ+ IJ7USLTaN01dvRVmrH2zB2HA TElOSywgQVBQTElOSyIgbmFt IS9rcFGuMAMa IC8+SV9oPCWvRxbsoKDsq7J9 qSU5P51fyg2eNCbcuYS7ACGl IlHfpqruz4rkrMf7VEcoMkxb OyBt LDSgqZ25YGM6cO07Ns60iVKs uREwb7vyiZd6MjEeZAEuQTD4 rSabOBiau6GkKFOiD58teKEh c2U6 TBTyzIirwRPgEzXouLF6oC6h DHcsdwbml1ialvcyTig5bn91 hDUmc6W6lSB2H7HrqhX0GTBt bGQg AfeufIRCfM4agzfwc7dcfovr NhZmOLYcUBl5CKk6QNUteHbd EyHmPC05BOD0GOYqvsUrJ7Wt LWFs lSkaIyG3q6E3Lt5AR3GZDlea T2DDBVSWFTyyjNF+CK08cf43 M3FvZhsaNuz6LKJuJRR1qFP2 aD0n SNYcKXenm6W9iHJ7K7OqzdKk gy7wi9jcUNYaHLdrO90zsSLx v3X9GIEjhBV6ERXntWbeHbSh aG93 Oyc+FRLrbHthy6GdMzjij1no i9vftKr2HkbqKCEjalKkwGnk CFK0j8PoBl2gPEFuxIK8gKK6 aD0i VoXoAsQ2SLspY463CkDrlULu VijnZ44kV0KflJT+PHRyPjx0 JVPkjTylVP7rN8LfWKUcjgta bGVm uKgaRE1jEEBmmpdbYJAnrX2o CVAqQ6l8EuLoEeA4FPbyZ5Kz XNJsynlfJn38hO0dMzPpUvO2 MGlu J4SrovX8KGDuqCGvCCpbYLH8 G00xd4Z7BNOpSMPcLKK7oUU4 sF4vqJssgztupXWnxLmxbwFg dGlj CXlaYImrY580ACTnxUtiPdVc ZGluZyBEYXRlOiAgMDkvMTIv MjAyMzwvdGQ+CVNrLNL4pTvc PSAn fATrKJrrRz5loCnihFoiDO5y VRIwcqyoGYJalQ7eAKMsfAJf rVifXL9yFROkrucdq725UjJc MHB0 ENYyaTLjW3EvoU4rJkOcDVGr RJFxP1CjpIFfZBqaR009TLzq DcR0IYZygsVgA4IjBDVkzZbx OiB0 f5W5Bh4Yi8LzccwoL1PfgVKi OgXuDubkGIe2T6UtCerkyQD+ ZZ25YFKjGV07HBc5VKK3iBig PSdi LDTaC6XunC4kEjHxJBYkGQHi Oyc+PHRhYmxlIHdpZHRoPScx VNVkAcBxmXttDH8qOx2jLTIu LWNv lLmrxPSuTtZfk5shZAAlXOlv US2mjSmsQ8NxhBD5TJWsx2r0 Ra59V30oQ4XvnTD+PGNvbCB3 aWR0 jI6xPuNzSpG9UDxaH059HsJv wNKxEkesq9bwy2lquDy4PsZ1 RDMdwyAhtBkhWPP4n5JyJf23 Y29s IHdpZHRoPSIxNSUiIHZhbGln sp1ohS1mTh6+SCEfuOH2zWA1 zI7bUgRzHyE9JJjiM073JtBq cCIv Avgwx8rgo2hbnBe7NhNfOJOg yuTekXrjZAN1r8NdBk20T7Cg oTtgi5TmMoq1tq89rCIot4E7 bGU9 E4WwPYZgghutyDGdkFvfSB0i LCZyxyixDEQvuX0kWXLqO3l9 VwKdMfF1IVedZ6KoliF5NLMt bGQg OOPujGAOvY3qwqnzz3fyriui GkVgUPWiEAn6XMg2GEBmfYzl GpUwSJA6EdL3QGR9zJXndY7f bGln pqwofR6hFzt+UGK4aVNysIOT VJ0uJrlcoLF+JEDaFQO3xPvr YCniZLBpsU1uPBUvI1u7UlOw LjA1 NAtiF6XncoT6XRRgpOKdCNSb nEICnX3euvkex1aouujlZfLw ZLDtOSd9FGe5BAIecEfdRvUd ZWZ0 PeE3CEB5iJEmfP0qoGcpkwka cW7sTdn+FtioaNduLCQ1ASr7 P7DwOnl9XJFnfFcaQK4kwFVp ZGlu Xv9wcArhjPkkLH8jNDYvywcv n554QrKho1mnOUYguIOjSPbu NSP7Z17jj6L3MGDlJRDfYOW1 dGV4 jA3toTtthaibwPEksUkcimKu eFniPUepCCuxD895IFJkzVaz UzGuBFm4Z6KbCha7AXEhnNtf ZT0n eJPrSKahOm2pjHenuFokXU8q KJOwhkika495RrCzf3kfANBu gBUzMKhlAYT3D78sg8X6LCYw MDAw SZJ6pXP9rQ1quLluezobfTLq cOpopySdaCtoPTezYMxqR125 JWDmeZdcVyCydSi3L7RiOnt6 ZCBz jAnuCB8sgXBoOAozGd6yyQuk lEhwQW6zQJEizeljo063YoGs x8ikZJNgiHNkKBzfOPI4F18s b3I6 IGZbJOGtVJZ6jXQ6zF2qwAjg bjogbGVmdDsgdmVydGljYWwt NCsuX200AVExdRcrDcYqcQva bnQg LPohYEz5Z4LcPigayUP+PC90 QZFkUA23nTEdxAAdd2serYy0 BwBkGZTeGEA5eKmsINmnr2Ch ZXIt Z37nwETyx6V1YZRqxTkpeZKb UnBieCW0nH0eJUxeshvey7te hhoeFllco8gmyq71hQ78T18s IHdp PVVjFGBuKHGfXDVehNoyrw9x aO0xEe2+KBRbkIY5sAO6rE4o WWNaYyQ2NJjaJ542SyUejQQp Pjxj c1nsm0ofrMt4EbX7WEOuqnSl bCqmBTF3l8QwGf25A48aAVui CTCjLFQgPXMlIQCfaPcghw8r dG9w Ii8+GYXhqMP0iLT0uK0uZfOc JjZ5TIleO904ToXyfTQrRlgt Y54kO0TliIX+XSJwFbg4RFOu dHls UI7biDNgSAeaFu6oWPK0BnQo TtUaAGrwE2EuPCVustdbckeb pZK9DKUkEIXjsN12Ww2isUqv MTBw tBJQxK4lxipyy7trtwmdApUy UZQkSGt4OKw6XOJtpXhrMnLy NCX2VmR5YYP8pXZajQ2maDoa bjog yT2hA2XsJCGfxypiWr75mS8p IbZkSdV4KZfrQcr+X4ANMvRA FLWEVIFCRNQMRK6VJKB9Q0Hd Pjx0 PGNziHrkFM0jmDLeWXerLg1q cGmbcEqyGF3qWXYbahuwRBGo nC5gHNOrsZVhzQwoDP7dKLQg bjtm r562RmSiDZX7RJOxiMNyD4Mp aP2mJoRmYWFyGSRnD9EveGLr TPvdQ635KFfnGqL2VVSpljCo Y2Fs TKBldTbgEqZ8s2I1Vx0hAt2u Uk9dYXU4UY45ZO53yNMdw5H5 lLV2V0ZcEGJzfykgbwyadSY7 IDAu WBOnhP70jBRsTInoPa1sb3S2 w109LFAzISAgwL19Cx2qvRaf DVFvoLTEaE9xmfjuj1hcagse IzAw FBSrECa4QBz4ZZUqvKbsVrPw MUC8WdY0YBP1oWSrnX0liLoe bfmqdD3zQdx+NTUgWWVhcnM8 L3Rk Vts4VGYqxGqdVD3bxDDnZFjy Pf0slOuauWdcWL3bSVMrquat NPOndO3qBMSvvHZwiNuhLX5y NTBp jzdrh223BsOyLMG1KOTstHHp C1GmmZ9eSkHrFHEhEOGuN1Tw kSAoKTmsS058ZYphBdD3GKJx cnRp W5LfUOBvsFadUuG3g1M4Gb3W KA9DHQR0R0TtKhq7IWQbcWsf VR2ltEJkNJctMx5trIbmaEme MC4w XOBfsovoKYKfgM8uBSKauZVp oTrtGJ8tJADimetom516ZxVw HTW0MDLvxEKfP5XpiV5qJcRn MDAw ISXnI6AxtKIxSKoxY011KXsn TqC5HVKawoAaL1SdRHWbaOnw DgK8o2T7Dp3LbZNwJ4UrC8d6 L3Rk PjwvdHI+KZ26QFGvIF01fIZl pDSie9agqEe0CtJnEKUqYFD0 tAopQItvx2MpCHJfT91fxQNm c2U6 KZYmnQmxqTWbHoAhsPV0iE7i WLruhzsfu0pxyoxqJloiv0za oj28yU94X10qFOznRCEySTFg MCUi MDVbqCrmiy9hyC4rLd3+PGNv aFJ3eBG5lT5dMlUqCzY8WWjr H848IpSdbNGlTmmvi4vnm4od dGg9 AxNgDPDtirCzoStgCSW4z5Nb Mo72E36iOSrrGLEfLMQjSPUi TSWuaHgyzz4rtJ9lXq8+PC9j b2xn wi94lA02bDJ+KBXhJMY9rPhf IAztLAGuwJ1wYAvsRhD5UWTl UvFnwN93rGTzLChaVh7pcPrw dDog AE5iLQVhloutp417ShCrw4kf SNEehTHmEWynCNN2S86kc0F0 GTAfTDEzXPG5mSM9oG1aaZlo bjog bGVmdDsgdmVydGljYWwtYWxp E618LQHtoNzdWoMixYGbR0zj laIFSD8xSvvekHT+PHRkIHN0 eWxl TWkhFGTdmN5fUOKeX2x1BqYp VqC0PHvpU3IljaO4GVKbuRYq EBSenKVZfY8axigiq0nzqjns IzAw MNNmNOr7VBy9MUMpgKbyAgUj EZI5ZfT0ACC5mOUwlD1zcMrw jwnrhC2rRli+RklOOjwvdGQ+ PHRk JBS1cRiaSHeiRLHyiN8eRYPi P5p5HoXmJxI6RAgjJ4FhvyK0 JKGjwTIlQLNftWHQeN1liwfo b2xv kpgsIvTiDFYoRJx3NDu2QCIb wUikOtCnJSL4RvG6WGJ0dMPi rP9qoYnnsiyatB0oAng+TVJO Ojwv dGQ+NKIyVGM9mGiyUWwaGQKj bV8wZIVfW5x3JdNzEpM2FRxg B8PgotN6AJYqoGMzEGWjqFWQ aW1l xcmpi9gfupqrRjZsBUIoSFs2 TMx1MJNqlBpzTkSzEQK3CkO7 DPP7bKQepZ1jyZzlghknsB0j Oyc+ UAQ0JIR4EY09ZH62R2YhExig dGFibGU+PHRhYmxlIHdpZHRo WAfyPAKnNtLogWsjKI9oXa4p ZGVy LWN (more content not included)... Normal [facility] ED Clinical Summaryon 2022 ED Clinical Summary [facility] [address] [place] [address] ED Clinical Summary PERSON INFORMATION Name: CATRACHITA HUTCHISON Age: 57 Years Sex: FEMALE : 1965 MRN: Acct#: Visit Reason: Buttock Injury; Fall; Ankle injury - Minor; FALL-LFT ANKLE/RT BUTTOCKS PAIN Arrival: 10/24/2022 11:00:52 Discharge: 10/24/2022 13:34:00 LOS: 000 02:34 Check In: 10/24/2022 11:00:52 Checkout:10/24/2022 13:34:00 Address: [address] [place] [address] [address] [facility] [address] PCP: Provider, Unlisted PROVIDER INFORMATION Provider Role Assigned Unassigned Ruben Llanes MD ED Provider 10/24/2022 11:15:02 Hrarison RN, Joan Sewell ED Nurse 10/24/2022 11:17:05 VITALS INFORMATION Vital Sign Triage Latest Temperature Tympanic 36.6 DegC 36.6 DegC Temperature Temporal Artery Pulse Rate O2 Sat 100 % 100 % Respiratory Rate 18 br/min 18 br/min Blood Pressure /81 mmHg /81 mmHg MEDICAL INFORMATION Medications Given: Medication Dose Route acetaminophen-hydrocodon e (acetaminophen-hydrocodo ne 325 mg-5 mg oral tablet) 1 tab(s) [...] Oxygen Therapy Room air . General: Alert. Lincoln coma scale: Total score: Total score: 15. [...] the patien (more content not included)... Normal [facility] ED Note - Physicianon 2022 ED Note [...] Oxygen Therapy Room air . General: Alert. Lincoln coma scale: Total score: Total score: 15. [...] occurred at h (more content not included)... [facility] ED Note-Nursingon 10-24-2022 ED Note-Nursing Patient arrives to [facility] ED via private vehicle. Wheeled to ED room 6. Alert and oriented X4. C/O left ankle pain and swelling and right buttocks pain. Patient reports tripping and falling. Patient reports previous history of left ankle injuries. [facility] ED Patient Summaryon 023 ED Patient Summary [facility] - Emergency Department [address] [place] [address] PATIENT DISCHARGE INSTRUCTIONS Patient Information Name: CATRACHITA HUTCHISON Age: 57 Years Date of : 1965 Reason For Visit: Buttock Injury; Fall; Ankle injury - Minor; FALL-LFT ANKLE/RT BUTTOCKS PAIN Arrival Time: 10/24/2022 11:00:52 Primary Care Physician: Provider, Unlisted Attending Physician: Ruben Llanes MD Comment: Visit Diagnosis: Diagnoses This Visit Ankle injury - Minor ([id number] -[id number]) Buttock Injury ([id number] -[id number]) Closed nondisplaced fracture of fifth metatarsal bone (S92.356A) Contusion, buttock (S30.0XXA) Fall ([id number]) Fall on same level from slipping, tripping or stumbling (W01.0XXA) Moderate left ankle sprain (S93.402A) The Pharmacy at [facility] is open Thursday through Thursday from 9A [...] alcohol and/or drug addiction problems; contact the [facility] 15/09 Crisis Hotline -Text 4HAER zh 194722. If you received any narcotics, sedation, or [...] crutches for support. Nonweightbearing until reevaluated. Contact valet parker or orthopedics of your choice in your hometown. Return to ER for any worsening symptoms especially any symptom that concerns you. Medication Information: The exam and treatment you received today in the [facility] Emergency Department were for an urgent problem and are not intended as complete care. It is important for you to follow up with a doctor, nurse practitioner, or physician?s esol teacher assistant for ongoing care. If your symptoms [...] so we can reach you if necessary. [facility] Emergency Department has provided you with a complete list of medications post discharge. Please inform your respiratory assistant/provider of your visit and for further instruction on these medications. Any specific questions regarding your chronic medications and dosages should be discussed with your primary care physician(s) and/or pharmacist. New Medications [facility], [address] [place], [place] [id number], [phone] acetaminophen-hydrocodon e (acetaminophen-hydrocodo ne 325 mg-5 mg oral tablet) 1 tab(s) [...] Patient Education (more content not included)... Normal [facility] XR Ankle Complete Lefton XR Ankle Complete [...] MD 10/24/22 12:25 p Technologist: RAFAEL CRUZ [facility] XR Foot Complete Lefton XR Foot Complete [...] Johnson MD 10/24/22 12:25 p Technologist: ANTHONY [facility] XR Sacrum/Coccyx Minimum 2 V iewson 10-24-2022 XR Sacrum/Coccyx Minimum 2 Views CLINICAL [...] Johnson MD 10/24/22 12:27 p Technologist: ANTHONY [facility] Vital Signs Date Time Vital Sign Value Performing Clinician Facility 11-01-2024 09:21-0400 Body height 165.1 cm Eva Hemmer PA Work Phone: [facility] 11-01-2024 09:21-0400 Body mass index (BMI) [Ratio] 31.62 kg/m2 Eva Hemmer PA Work Phone: [facility] 11-01-2024 09:21-0400 Body weight 86.18 kg Eva Hemmer PA Work Phone: [facility] 11-01-2024 09:21-0400 Diastolic blood pressure 88 mm[Hg] Eva Hemmer PA Work Phone: [facility] 11-01-2024 09:21-0400 Heart rate 90 /min Eva Hemmer PA Work Phone: [facility] 11-01-2024 09:21-0400 Respiratory rate 16 /min Eva Hemmer PA Work Phone: [facility] 11-01-2024 09:21-0400 SaO2% (BldA) [Mass fraction] 97 % Eva Hemmer PA Work Phone: [facility] 11-01-2024 09:21-0400 Systolic blood pressure 128 mm[Hg] Eva Hemmer PA Work Phone: [facility] 01-04-2024 11:52-0500 Body height 165.1 cm PHYSICIAN NO [facility] 01-04-2024 11:52-0500 Body mass index (BMI) [Ratio] 30.7 kg/m2 PHYSICIAN NO [facility] 01-04-2024 11:52-0500 Body temperature 98.9 [degF] PHYSICIAN NO [facility] 01-04-2024 11:52-0500 Body weight 83.91 kg PHYSICIAN NO [facility] 01-04-2024 11:52-0500 Diastolic blood pressure 76 mm[Hg] PHYSICIAN NO [facility] 01-04-2024 11:52-0500 Heart rate 93 /min PHYSICIAN NO [facility] 01-04-2024 11:52-0500 Respiratory rate 16 /min PHYSICIAN NO [facility] 01-04-2024 11:52-0500 SaO2% (BldA) [Mass fraction] 97 % PHYSICIAN [facility] 01-04-2024 11:52-0500 Systolic blood pressure 116 mm[Hg] PHYSICIAN NO [facility] 05-26-2023 10:27-0400 Body height 165.1 cm Brando Medley [employer] Work Phone: [facility] 05-26-2023 10:27-0400 Body mass index (BMI) [Ratio] 32.55 kg/m2 Brando Medley [employer] Work Phone: [facility] 05-26-2023 10:27-0400 Body weight 88.72 kg Brando Medley [employer] Work Phone: [facility] 05-26-2023 10:27-0400 Diastolic blood pressure 85 mm[Hg] Brandolaila Medley KARATE TEACHER-RIM TURNING FINISHER Work Phone: [facility] 05-26-2023 10:27-0400 Systolic blood pressure 136 mm[Hg] Brandolaila Medley KARATE TEACHER-RIM TURNING FINISHER Work Phone: [facility] 04-06-2023 10:10-0500 Body height 165.1 cm Romario Coelho MD Work Phone: [facility] 04-06-2023 10:10-0500 Body mass index (BMI) [Ratio] 32.45 kg/m2 Romario Coelho MD Work Phone: [facility] 04-06-2023 10:10-0500 Body weight 88.45 kg Romario Coelho MD Work Phone: [facility] 04-06-2023 10:10-0500 Diastolic blood pressure 84 mm[Hg] Romario Coelho MD Work Phone: [facility] 04-06-2023 10:10-0500 Heart rate 77 /min Romario Coelho MD Work Phone: [facility] 04-06-2023 10:10-0500 SaO2% (BldA) [Mass fraction] 98 % Romario Coelho MD Work Phone: [facility] 04-06-2023 10:10-0500 Systolic blood pressure 136 mm[Hg] Romario Coelho MD Work Phone: [facility] 03-26-2023 14:11-0500 Body mass index (BMI) [Ratio] 32.28 kg/m2 Romario Coelho MD Work Phone: [facility] 03-26-2023 14:11-0500 Body weight 88 kg Romario Coelho MD Work Phone: [facility] 03-26-2023 14:11-0500 Heart rate 92 /min Romario Coelho MD Work Phone: [facility] 03-26-2023 14:11-0500 SaO2% (BldA) [Mass fraction] 97 % Romario Coelho MD Work Phone: [facility] 12-04-2022 14:30-0400 Body height 165.1 cm Myra Borges Other [employer] Other 12-04-2022 14:30-0400 Body mass index (BMI) [Ratio] 30.78 kg/m2 Myra Borges Other [employer] Other 12-04-2022 14:30-0400 Body temperature 98.3 [degF] Myra Borges Other [employer] Other 12-04-2022 14:30-0400 Body weight 83.92 kg Myra Borges Other [employer] Other 12-04-2022 14:30-0400 Diastolic blood pressure 86 mm[Hg] Myra Borges Other [employer] Other 12-04-2022 14:30-0400 Respiratory rate 18 /min Myra Borges Other [employer] Other 12-04-2022 14:30-0400 SaO2% (BldA) [Mass fraction] 98 % Myra Borges Other [employer] Other 12-04-2022 14:30-0400 Systolic blood pressure 124 mm[Hg] Myra Borges Other [employer] Other Encounters Encounter Date Encounter Type Care Provider Facility Start: 11-01-2024 End: 11-01-2024 [facility] Eva Johansen PA Work Phone: [facility] [place] [facility] Start: 11-01-2024 End: 11-01-2024 [facility] Eva Johansen PA Work Phone: [facility] [place] [facility] Start: 11-01-2024 End: 11-01-2024 ambulatory EVA JOHANSEN Not Available Start: 11-01-2024 End: 11-01-2024 Office outpatient visit 15 minutes Eva Johansen PA Work Phone: [facility] [place] [facility] Comment on above: Acute pain of left k nee (Primary Dx); Encounter for screening mammogram for malignant neoplasm of breast Start: 01-04-2024 End: 01-04-2024 Patient encounter procedure PHYSICIAN [facility] [place] Work Phone: Start: 01-04-2024 End: 01-04-2024 ambulatory PHYSICIAN [facility] Work Phone: Start: 01-04-2024 End: 01-04-2024 ambulatory PHYSICIAN NO [facility] Work Phone: Start: 01-04-2024 End: 01-04-2024 Patient encounter procedure PHYSICIAN NO [facility] [place] Work Phone: Start: 06-24-2023 End: 05-01-2024 Orders Only Lorena YANG [facility] Comment on above: Encounter for screen ing colonoscopy Start: 05-26-2023 End: 05-26-2023 ambulatory BRANDO MEDLEY [facility] Start: 05-26-2023 End: 05-26-2023 Patient encounter procedure Brando Medley KARATE TEACHER-RIM TURNING FINISHER Work Phone: [facility] Comment on above: Encounter for screen ing colonoscopy (Primary Dx); Family history of malignant neoplasm of colon in father Start: 04-06-2023 [employer]amboo flowsheet Romario pascual MD Work Phone: [facility] Start: 04-06-2023 Bamboo flowsheet Romario pascual MD Work Phone: [facility] Start: 04-06-2023 End: 04-06-2023 Office outpatient visit 15 minutes Romario Coelho MD Work Phone: [facility] Comment on above: Elevated BP without diagnosis of hypertension (Primary Dx); Moderate mixed hyperlipidemia not requiring statin therapy (CMS/HCC); Breast screening; Encounter for screening for malignant neoplasm of colon; Chest discomfort Start: 03-26-2023 End: 03-26-2023 Office outpatient visit 25 minutes Romario Coelho MD Work Phone: [facility] Comment on above: Chest discomfort (Pr imary Dx); Elevated BP without diagnosis of hypertension; History of cigarette smoking Start: 12-04-2022 End: 12-04-2022 ambulatory Myra Borges Other [employer] Other Start: 12-04-2022 Office outpatient ne w 30 minutes Myra Borges [facility] [place] Start: 10-24-2022 End: 10-24-2022 Emergency department patient visit Ruben Llanes Facility:[facility] Start: 08-02-2020 End: 08-02-[address] CHAYA KAMARA Facility:[facility] Procedures Date Procedure Procedure Detail Performing Clinician Start: 01-04-2024 Plain chest X-ray PHYSI DEE NO FAMILY Start: 06-24-2023 End: 06-24-2023 Colonoscopy Brando Medley KARATE TEACHER-RIM TURNING FINISHER Work Phone: Start: 06-24-2023 Gonadotropin chorion ic quantitative Not In System Ref Prov Start: 04-15-2023 Mammography Eva BOO Work Phone: Plan of Treatment Date Care Activity Detail Author Start: 06-23-2033 Screening for malign ant neoplasm of colon [facility] Start: 08-22-2025 Influenza vaccination Influenza Vacc ine (#1) [facility] Comment on above: Postponed from 10/24 (Patient Refused) Start: 11-23-2024 End: 11-23-2024 Patient encounter procedure 11/23/2024 9:00 AM EDT Office Visit [facility] [facility] [address] [place] [address] Eva Johansen PA [address] [place] [address] [facility] [facility] Start: 11-01-2024 End: 01-01-2026 DBT Breast - bilateral screening Bilateral screening mammogram with tomosynthesis Imaging Routine Encounter for screening mammogram for malignant neoplasm of breast Expected: 11/01/2024, Expires: 01/01/2026 [facility] Work Phone: Comment on above: Expected: 11/01/2024 , Expires: 01/01/2026 Start: 10-24-2024 Influenza vaccination Influenza Vacc ine (#1) [facility] Start: 05-25-2024 Adult BMI Screening Adult BMI Screen ing [facility] Start: 05-25-2024 Tobacco Screening Tobacco Screening [facility] Start: 04-15-2024 Screening for malign ant neoplasm of breast Mammogram [facility] Start: 10-25-2023 Influenza vaccination Influenza Vacc ine [facility] Start: 10-05-2023 End: 10-05-2023 Patient encounter procedure 10/05/2023 8:30 AM EDT Office Visit [facility] [address] [place] [address] Romario Coelho MD [address] [place] [address] [facility] Start: 04-06-2023 End: 06-04-2024 MG Breast - bilateral Screening Bilateral screening mammogram Imaging Routine Breast screening Expected: 04/06/2023 (Approximate), Expires: 06/04/2024 [facility] Work Phone: Comment on above: Expected: 04/06/2023 (Approximate), Expires: 06/04/2024 Start: 04-06-2023 End: 04-06-2023 Patient encounter procedure 04/06/2023 10:15 AM EST Office Visit [facility] [address] [facility] [address] [place] [id number] Romario Coelho MD [address] [facility] [address] [place] [address] Arrived [facility] Comment on above: [...] Expected: 03/26/2023 (Approximate), Expires: 03/26/2024 [facility] Work Phone: Comment on above: Expected: 03/26/2023 (Approximate), Expires: 03/26/2024 Start: 10-24-2022 COVID-19 Vaccine ( season) COVID-19 Vaccine ( season) [facility] Start: 2017 Administration of varicella zoster vaccine Zoster (Shingles) Vaccine (1 of 2) [facility] Start: 2007 Screening for malign ant neoplasm of breast Mammogram [facility] Start: 1997 Screening for malign ant neoplasm of cervix [facility] Start: 02-14-1988 Screening for malign ant neoplasm of cervix Pap Smear [facility] Start: 1986 DTaP,Tdap and Td Vaccines (1 - Tdap) DTaP,Tdap and Td Vaccines (1 - Tdap) [facility] Start: 1985 Adult BMI Follow Up Plan Adult BMI Follow Up Plan [facility] Start: 1979 Depression Screening Depression Scre ening [facility] Start: 1967 Screening for malign ant neoplasm of colon [facility] End: 05-24-2024 Colonoscopy Colonoscopy GI Routine Encounter for screening colonoscopy 1 Occurrences starting 05/26/2023 until 05/24/2024 [facility] Work Phone: Comment on above: 1 Occurrences starti ng 05/26/2023 until 05/24/2024 Immunizations Immunization Date Immunization Notes Care Provider [facility] 01-12-2023 influenza, injectabl e, quadrivalent, preservative free Romario Coelho MD Work Phone: [facility] 01-12-2023 influenza virus vaccine, unspecified formulation Brando Medley APRN-RIM TURNING FINISHER Work Phone: [facility] Payers Date Payer Category [facility]ayer [facility] [id number] 2019 Unknown [id number] 2018 Worker's Compensation WORKER'S C [employer]MPENSATION WORKER'S GOCAYSPNEZLI-HQCMUE-VCXI ONLY [id number] 2018-Present [id number] [id number] 1967 Unknown [id number] 1967 Unknown [id number] 1967 Unknown [id number] 1967 Unknown [id number] 1959 Unknown [id number] Unknown [employer] [facility] [id number] Unknown [id number] Social History Date Type Detail Facility Unknown if ever smoked [employer] Other Start: 03-26-2023 End: 04-01-2023 Sex Assigned At [facility] Start: 10-28-2022 End: 11-01-2024 Tobacco smoking status TNIS Ex-smoker [facility] End: 03-26-2022 History of tobacco use Current smoker [facility] End: 03-26-2022 History of tobacco use Cigarette Smoker [facility] Start: 10-28-2022 End: 11-01-2024 Tobacco use and exposure Smokeless tobacco non-user [facility] Start: 03-26-2023 End: 04-01-2023 History of Social function [facility] Start: 1965 Sex Assigned At Female [facility] Start: 10-28-2022 Gender identity Identifies as female gender (finding) [facility] Within the last year , have you been afraid of your partner or ex-partner? No [facility] How often do you attend rastafarian or sikhism services? Patient refused [facility] Are you [...] buy more. Never true [facility] Start: 01-04-2024 End: 01-05-2024 Sex Female (finding) [facility] Start: 05-26-2023 Alcoholic beverage intake Current non-drinker of alcohol (finding) [facility] Start: 1965 Sex assigned at Not on file P [facility] Start: 11-01-2024 Alcoholic beverage intake Current drinker of alcohol (finding) [facility] How often to you hav e a drink containing alcohol? Monthly or less [facility] How many standard drinks containing alcohol do you have on a typical day? 1 or 2 [facility] Functional Status Date Assessment Result Facility 11-01-2024 Total score [AUDIT-C] 1 11/02/19 25 9:14 AM EDT Ramona Doan LPN [facility] 11-01-2024 Patient Health Quest ionnaire 2 item (PHQ-2) [Reported] [facility] Clinical Notes 08-02-2020 to 11-01-2024 RAJEEV Reyna - 11/01/2024 9:00 AM EDT Note Date & Type Note Facility 11-01-2024 History of Presen t illness Narrative Images from the original note were not included. Subjective Patient ID: Catrachita Hutchison is a 59 y.o. female who presents [...] a crampy type pain. Rates pain sitting 1-2/10, standing/walking 8/10. She has tried elevating it, Ibuprofen, ice. If she takes Ibuprofen regularly it can upset her stomach. No specific injury to her [...] Wt 190 lb SpO2 97% BMI 31.62 kg/m Smoking Status Former BSA 1.99 m Review of Systems Constitutional: Negative for chills, [...] Anti-inflammatory cream to knee twice a day. Prednisone as prescribed. Take it with food. No NSAIDs [...] up for Wellness. documented in this encounter [facility] 01-04-2024 Evaluation note Diagnosis Onset Date Resolution Bronchitis acute January 04, 2024 11:41am Contact with or suspected exposure to severe acute respiratory syndrome noneactive January 032023 11:41am [facility] Work Phone: 1(911) 348-916804-02-2024 History of Present illness Narrative* Brando Medley, KARATE TEACHER-RIM TURNING FINISHER - 05/26/2023 10:30 AM EDT Chief Complaint: Colon cancer screening History of Present Illness Catrachita Hutchison is a 58 y.o. female who presents to the office for colon cancer screening. Thisis her first colonoscopy. She denies any changes [...] 0.225 gram tablet, Please see instructional sheet givenby physicians office., Disp: 24 tablet, Rfl: 0 [...] evacuation preparation. Patient verbalizes understanding and wishes toproceed. Evaluation included: Preparing to see the patient (e.g., review of tests) Obtaining and/or reviewing separately obtained history Performing a medically appropriate examination and/or evaluation Counseling and educating the patient/family/caregiver Referring and communicating with other health care process manager Encounter for screening colonoscopy [Z12.11] NILSA REDD [facility] [place] This note was created with the assistance of a speech recognition program. While intending to generate a timely document that accurately reflects the content of the visit, no guarantee can be provided that every grammatical or spelling mistake has been or will be identified or corrected. Thank you for your understanding. NILSA Redd 05/26/23 1049 [facility] History of Present illness Narrative* Romario Coelho MD - 04/06/2023 10:15 AM EST Subjective Patient ID: Catrachita Hutchison is a 58 y.o. female who presents for Results (labs) and Follow-up (CPand elevated blood pressure). Pt states she has [...] GALLBLADDER SURGERY ROTATOR CUFF REPAIR Right Dr stepeugene TONSILLECTOMY TUBAL LIGATION Visit Vitals BP 136/84 [...] Final BUN/CREATININE RATIO 03/26/2023 SEE NOTE: 6 (calc) Final Comment: Not Reported: BUN and [...] equation in the estimation of LDL-C. [facility] PETERSON et al. SLICK. 2013;310(19): 1030-9636 (http://education.IndiaIdeas.Yapert/faq/TOL140) CHOL/HDLC RATIO 03/26/2023 3.7 <5.0 (calc) Final [...] Routine F/U, Test/Lab Review. [facility] [id number] History of Present illness Narrative* Romario Coelho MD - 03/26/2023 2:00 PM EST Subjective Patient ID: Catrachita Hutchison is a 58 y.o. female who presents for Establish Care (Tightness in chest ). Pt states the chest pain is from having lots of stress, comes and goes, she states a lot going on right now Pt does work a lot No other dr other than scientist Pt previous dr was dr joseph Current [...] Test/Lab Review, BP check. documented in this encounterSt. [facility] [id number] Evaluation note* Encounter Date Diagnosis Assessment Notes Treatment Notes Treatment Clinical Notes Nov, Acute sinusitis, unspecified (ICD-10 - J01.90) Patient declines/refusing COVID/Influenza testing. Discussed diagnosis with patient today. [...] of diseases classified elsewhere (ICD-10 - B97.89) [employer] Other 09-01-2023 NoteEducation Materials Orthopedics Metatarsal Fracture [...] This may take several hours. ? Take vvdo-wwv-gulckwv and prescription medicines only as told by [...] or your foot, ev (more content not included)...[id number] NotePROCEDURE: XR FOOT LT MIN 3 VIEWS COMPARISON: 07/27/2012 HISTORY: Injury of left foot FINDINGS: BONES:No acute fracture or dislocation. Moderate enthesopathic spurring of the calcaneus at the insertion of the plantar aponeurosis. SOFT TISSUES:Negative. No visible soft tissue swelling. EFFUSION:None visible. OTHER: Negative. IMPRESSION: No acute fracture Electronically authenticated by: PIERRE MEZA Date: 2020-08-02 12:50[facility] Chest discomfort- Primary Other chest pain Elevated BP without diagnosis of hypertension History of cigarette smoking documented in this encounter [facility] HealthcareEvaluation note* Diagnosis Elevated BP without diagnosis of hypertension- Primary Moderate mixed hyperlipidemia not requiring statin therapy ([facility]) Breast screening Breast screening, unspecified Encounter for screening for malignant neoplasm of colon Chest discomfort Other chest pain documented in this encounter [facility] HealthcareEvaluation note* Diagnosis Onset Date Resolution Status Admit Date Contact with or suspected exposure to severe acute respiratory syndrome noneactive January 032023 11:41am [facility] Work Phone: Evaluation note* Diagnosis Encounter for screening colonoscopy [facility] Diagnosis Encounter for screening colonoscopy- Primary Family history of malignant neoplasm of colon in father [facility]* Diagnosis Acute pain of left knee- Primary Encounter for screening mammogram for malignant neoplasm of breast documented [facility] this encounter [facility] N[facility]ative - Reported* Type Description Date Surgical History tubal ligation Surgical History cholecystectomy 1988 Surgical History appendectomy 1988 Surgical History rotator cuff Surgical History tonsillectomy Hospitalization History see above surgical histo ry [facility] Other InstructionsNot on filedocumented in this encounter [facility] SystemInstructionsNot on filedocumented in this encounter [facility] SystemReason for referral (narrative)* Consultation (Routine) - Pending Review Specialty Diagnoses / Procedures Referred By Contac t Referred To Contact General Surgery Diagnoses Encounter for screening for malignant neoplasm of colon Procedures MD OFFICE/OUTPATIENT [facility] 60 MINUTES Romario Coelho MD [address] [facility] [address] [place] [address] Manish Gonzales DO [address] [place] [id number] Referral ID Status Reason Start Date Expiration Date Visits Requested Visits Authorized [id number] Pending Review Specialty Services Required 04/06/2023 10/03/2023 1 1 [facility] Summary Purpose Family History No Family History Records Found Relationship Condition Age at Onset Recorded Date/T danelle father Unknown Malignant neoplasm Unknown Advance Directives No Advanced Directives Records Found Advance Directive Response Recorded Date/ Time Advance Directives No December 11:41am Chief Complaint and Reason for Visit Chief Complaint Admit Date Chest congestion January 04, 2024 11:41am R06.02 - Shortness of breath January 032023 12:59pm Reason for Visit Admit Date Contact with or suspected ex posure to severe acute respiratory syndrome January 04, 2024 11:41am Reason for Visit Admit Date Bronchitis January 04, 2024 11:41am Contact with or suspected ex posure to severe acute respiratory syndrome January 04, 2024 11:41am Additional Source Comments INFORMATION SOURCE (unrecogn ized section and content) DATE CREATED AUTHOR 08/06/2020 [facility] DATE CREATED AUTHOR AUTHOR'S ORGANIZ ATION 11/05/2022 [facility] DATE CREATED AUTHOR AUTHOR'S ORGANIZ ATION 05/27/2023 [facility] DATE CREATED AUTHOR AUTHOR'S ORGANIZ ATION 01/09/2024 [facility] DATE CREATED AUTHOR AUTHOR'S ORGANIZ ATION 11/03/2024 [facility] d[facility] Specialists EPIC REASON FOR VISIT (unrecogniz ed section and content) Reason Comments Establish Care Tightness in chest Reason Comments Results labs Follow-up CP and elevated bloo d pressure Reason Comments Colon Cancer Screening SCREENING COLONOS COPY, NO PRIOR, WANTS DONE AT [facility],REFERRED BY DR COELHO,136/85 Specialty Diagnoses / Procedures Referred By Contzoila t Referred To Contact General Surgery Diagnoses Encounter for screening for malignant neoplasm of colon Procedures MD OFFICE OUTPATIENT VISIT 60-74 MINS HIGH MDM AMB REFERRAL TO GENERAL SURGERY Romario Coelho MD [address] [facility] [address] [place] [address] Manish Gonzales DO [address] [place] [id number] Referral ID Status Reason Start Date Expiration Date V isits Requested Visits Authorized [id number] Pending Review 04/06/2023 10/03/2023 1 1 Care Teams (unrecognized sec tion and content) Afloat Cryptologic Manager Relationship Specialty Start Date End Date Unallocated, [facility] Provider [address] [place] [address] PCP - General 10/28/22 Afloat Cryptologic Manager Relationship Specialty Start Date End Date Unallocated, [facility] [address] [facility] [place] [address] PCP - General 10/28/22 Afloat Cryptologic Manager Relationship Specialty Start Date End Date Unallocated, [facility] Provider [address] [place] [address] PCP - General 10/28/22 Team Status: Active Member Role Status Dates PHYSICIAN NO FAMILY Primary Care Provider Active Team Status: Inactive Member Role Status Dates PHYSICIAN NO FAMILY Primary Care Provider Active Start: January 04, 2024 End: January 04, 2024 Rosa Perez APRN Attending Provider Active S tart: January 04, 2024 End: January 04, 2024 Team Status: Active Member Role Status Dates PHYSICIAN NO FAMILY Primary Care Provider Active Start: January 04, 2024 Rosa Perez , MAXWELL Attending Provider Active S tart: January 04, 2024 Afloat Cryptologic Manager Relationship Specialty Start Date End Date Romario Coelho MD [address] [place] [address] PCP - General Internal Medicine 04/06/23 Afloat Cryptologic Manager Relationship Specialty Start Date End Date Romario Coelho MD [address] [place] [address] PCP - General Internal Medicine 04/06/23 Afloat Cryptologic Manager Relationship Specialty Start Date End Date Romario Coelho MD [address] [place] [address] PCP - [place] [employer] 05/25/23 Afloat Cryptologic Manager Relationship Specialty Start Date End Date Romario Coelho MD [address] [place] [address] PCP - [place] [employer] 05/25/23 Goals (unrecognized section and content) Goals may be documented in a n alternate section FOR RECORDS PERTAINING TO PATIENTS WHO ARE [...] BE BASED ON THE PRIMARY CLINICAL RECORDS. Indexing [facility]. provides no warranty or guarantee of the accuracy or completeness of information in this document.
== END 2024-11-09 13:27 | disposition home or self-care (01) ==
LOC: MAMMO 13:26
PROVIDERS: PCP Internal Medicine; Visit Provider Physician Assistant
DX: Z12.31 Encounter for screening mammogram for malignant neoplasm of breast (principal)
CPT/HCPCS: 77063; 77067